=== PATIENT | female | born 1965 | race Caucasian/White ===

== ENCOUNTER 2021-05-27 15:14 | Inpatient (IN) | payer BC ==
[2021-05-27] MEDS ORDERED: Sodium Chloride 0.9% 10 ML Syringe FLUSH PRN (17:06)
--- NOTE | 2021-05-27 17:47 | CR ---
Chest: Frontal view of the chest was obtained. Comparison: Prior chest x-ray of 10/10/17. Heart size and mediastinum are within normal limits. Patchy areas of increased density are seen within the right upper and right midlung. Patchy areas of increased density are seen peripherally within the left upper and left lower lung. Left shoulder prosthesis is seen. Mild scoliosis is noted within the spine. Impression: 1. Patchy areas of increased density as described above within both sides of the chest. Findings are suspicious for COVID pneumonia. Please correlate. 2. Other incidental findings. Diagnostic code #3
[2021-05-27] MEDS ORDERED: Dexamethasone 4 MG Tab PO ONE (18:08)
--- NOTE | 2021-05-27 19:48 | EDM.PDOC ---
ED HPI GENERAL MEDICAL PROBLEM - General Chief Complaint: Respiratory Problem Stated Complaint: COVID SYMPTOMS Time Seen by Provider: 05/27/21 17:05 Source of Information: Reports: Patient, RN Notes Reviewed History Limitations: Reports: No Limitations - History of Present Illness INITIAL COMMENTS - FREE TEXT/NARRATIVE: Patient is a 56-year-old female presenting to the emergency department for evaluation of Covid symptoms. She reports that she is 10 days into cough, headaches, body aches, chills, and shortness of breath. Her is Covid positive. She is monitor her oxygen saturations at home and states that it was less than 90%, however she was able to get it to come out by doing breathing exercises. She has had some intermittent diarrhea but denies any nausea or vomiting. She has no chest pain. Denies any chronic underlying medical conditions. She has not received any form of treatment thus far for Covid. She has not officially tested positive for Covid. - Related Data Allergies Allergy/AdvReac Type Severity Reaction Status Date / Time levofloxacin [From Levaquin] Allergy Hives Verified 05/27/21 21:36 Home Meds: Home Meds Ibuprofen 800 mg PO TID PRN #20 tablet 01/05/16 [Rx] Loratadine/Pseudoephedrine [Claritin-D 24 Hour Tablet] 1 tab PO DAILY PRN 01/12/16 [History] Celecoxib [CeleBREX] 50 mg PO DAILY PRN 05/27/21 [History] Past Medical History HEENT History: Reports: None Cardiovascular History: Reports: None Respiratory History: Reports: None Gastrointestinal History: Reports: None Genitourinary History: Reports: Renal Calculus RN PROCEDURE History: Reports: None Musculoskeletal History: Reports: Other (See Below) Other Musculoskeletal History: has herniated disc in back, "flares up occasionally", left should replacement Neurological History: Reports: None Psychiatric History: Reports: None Endocrine/Metabolic History: Reports: Obesity/BMI 30+ Hematologic History: Reports: None Immunologic History: Reports: None Oncologic (Cancer) History: Reports: None Dermatologic History: Reports: None - Past Surgical History Head Surgeries/Procedures: Reports: None HEENT Surgical History: Reports: LASIK, Tonsillectomy Cardiovascular Surgical History: Reports: None Respiratory Surgical History: Reports: None GI Surgical History: Reports: None Female Surgical History: Reports: Hysterectomy, Tubal Ligation Endocrine Surgical History: Reports: None Musculoskeletal Surgical History: Reports: Other (See Below) Other Musculoskeletal Surgeries/Procedures:: removal of cyst left knee Social & Family History - Tobacco Use Tobacco Use Status *Q: Never Tobacco User Second Hand Smoke Exposure: No - Caffeine Use Caffeine Use: Reports: Soda - Recreational Drug Use Recreational Drug Use: No ED ROS GENERAL - Review of Systems Review Of Systems: Comprehensive ROS is negative, except as noted in HPI. ED EXAM, GENERAL - Physical Exam Exam: See Below Exam Limited By: No Limitations General Appearance: Alert, WD/WN, No Apparent Distress Respiratory/Chest: No Respiratory Distress, Normal Breath Sounds, No Accessory Muscle Use, Chest Non-Tender, Crackles (faint to bilateral bases) Cardiovascular: Normal Peripheral Pulses, Regular Rate, Rhythm, No Edema, No Gallop, No JVD, No Murmur, No Rub GI/Abdominal: Normal Bowel Sounds, Soft, Non-Tender, No Organomegaly, No Distention, No Abnormal Bruit, No Mass Neurological: Alert, Oriented, CN II-XII Intact, Normal Cognition, Normal Gait, Normal Reflexes, No Motor/Sensory Deficits Psychiatric: Normal Affect, Normal Mood Skin Exam: Warm, Dry, Intact, Normal Color, No Rash #1 Interpretation EKG Date: 05/28/21 Time: 17:40 Rhythm: NSR Rate (Beats/Min): 91 [place]: Normal P-Wave: Present QRS: Normal ST-T: Normal QT: Normal Course - Vital Signs Last Recorded V/S: Last Vital Signs Temp 98.8 F 05/28/21 20:30 Pulse 82 05/28/21 20:30 Resp 16 05/28/21 20:30 BP 122/72 05/28/21 20:30 Pulse Ox 97 05/28/21 20:30 - Orders/Labs/Meds Orders: Medication Orders Acetaminophen (Acetaminophen 325 Mg Tab) 650 mg PO Q4H PRN PRN Reason: Pain/Fever Last Admin: 05/28/21 21:34 Dose: 650 mg Documented by: Admin: 05/27/21 22:19 Dose: 650 mg Documented by: MARYANNE Albuterol/Ipratropium (Albuterol/Ipratropium 3.0-0.5 Mg/3 Ml Neb Soln) 3 ml NEB Q4H PRN PRN Reason: Shortness Of Breath/wheezing Docusate Sodium (Docusate Sodium 100 Mg Cap) 100 mg PO BID PRN PRN Reason: Constipation Enoxaparin Sodium (Enoxaparin 40 Mg/0.4 Ml Syringe) 40 mg SUBCUT DAILY [facility] Last Admin: 05/28/21 08:48 Dose: 40 mg Documented by: EDWINA Guaifenesin/Codeine Phosphate (Codeine/Guaifenesin 10-100 Mg/5 Ml Syrup 5 Ml Cup) 5 ml PO Q4H PRN PRN Reason: Cough Last Admin: 05/28/21 21:35 Dose: 5 ml Documented by: Admin: 05/28/21 16:58 Dose: 5 ml Documented by: EDWINA Ceftriaxone Sodium 2 gm/ (Sodium Chloride) 100 mls @ 200 mls/hr IV Q24H [facility] Last Admin: 05/28/21 07:30 Dose: 200 mls/hr Documented by: MARYANNE Remdesivir 100 mg/ Sodium (Chloride) 100 mls @ 100 mls/hr IV Q24H [facility] Stop: 05/31/21 20:59 Last Admin: 05/28/21 20:32 Dose: 100 mls/hr Documented by: MARI Loperamide HCl (Loperamide 2 Mg Cap) 4 mg PO ASDIRECTED PRN PRN Reason: Diarrhea Last Admin: 05/27/21 22:18 Dose: 4 mg Documented by: MARYANNE Morphine Sulfate (Morphine 2 Mg/Ml Syringe) 2 mg IVPUSH Q2H PRN PRN Reason: Pain (severe 7-10) Stop: 05/29/21 06:48 Ondansetron HCl (Ondansetron 4 Mg/2 Ml Sdv) 4 mg IVPUSH Q6H PRN PRN Reason: Nausea Ondansetron HCl (Ondansetron 4 Mg Tab.Dis) 4 mg PO Q4H PRN PRN Reason: nausea, able to take PO Oxycodone HCl (Oxycodone 5 Mg Tab) 5 mg PO Q4H PRN PRN Reason: Pain (moderate 4-6) Sodium Chloride (Sodium Chloride 0.9% 10 Ml Syringe) 10 ml FLUSH ASDIRECTED PRN PRN Reason: Keep Vein Open Last Admin: 05/27/21 19:55 Dose: 10 ml Documented by: MUELEVA Temazepam (Temazepam 15 Mg Cap) 15 mg PO BEDTIME PRN PRN Reason: Sleep Labs: Laboratory Tests 05/27/21 05/27/21 05/27/21 Range/Units 17:05 19:00 19:00 WBC 5.42 (3.98-10.04) K/mm3 RBC 4.92 (3.98-5.22) M/mm3 Hgb 13.5 D (11.2-15.7) gm/dl Hct 40.4 (34.1-44.9) % MCV 82.1 (79.4-94.8) fl MCH 27.4 (25.6-32.2) pg MCHC 33.4 (32.2-35.5) g/dl RDW Std Deviation 38.6 (36.4-46.3) fL Plt Count 198 (182-369) K/mm3 MPV 9.4 (9.4-12.3) fl Neut % (Auto) 77.6 H (34.0-71.1) % Lymph % (Auto) 15.7 L (19.3-51.7) % [place]son % (Auto) 6.3 (4.7-12.5) % Eos % (Auto) 0 L (0.7-5.8) Baso % (Auto) 0.2 (0.1-1.2) % Neut # (Auto) 4.21 (1.56-6.13) K/mm3 Lymph # (Auto) 0.85 L (1.18-3.74) K/mm3 [place]son # (Auto) 0.34 (0.24-0.36) K/mm3 Eos # (Auto) 0.00 L (0.04-0.36) K/mm3 Baso # (Auto) 0.01 (0.01-0.08) K/mm3 Manual Slide Review Normal smear PT (9.7-12.0) SECONDS INR APTT (21.7-31.4) SECONDS D-Dimer, Quantitative 0.67 H (0.19-0.50) mg/L Sodium (136-145) mEq/L Potassium (3.5-5.1) mEq/L Chloride (98-107) mEq/L Carbon Dioxide (21-32) mEq/L Anion Gap (5-15) BUN (7-18) mg/dL Creatinine (0.55-1.02) mg/dL Est Cr Clr Drug Dosing mL/min Estimated GFR (MDRD) (>60) mL/min BUN/Creatinine Ratio (14-18) Glucose (70-99) mg/dL Calcium (8.5-10.1) mg/dL Total Bilirubin (0.2-1.0) mg/dL AST (15-37) U/L ALT (14-59) U/L Alkaline Phosphatase (46-116) U/L Troponin I (0.00-0.056) ng/mL C-Reactive Protein (<1.0) mg/dL NT-Pro-B Natriuret Pep (0-125) pg/mL Total Protein (6.4-8.2) g/dl Albumin (3.4-5.0) g/dl Globulin gm/dL Albumin/Globulin Ratio (1-2) SARS-CoV-2 RNA ([facility]) Positive H (NEGATIVE) 05/27/21 05/27/21 05/27/21 Range/Units 19:00 19:00 19:02 WBC (3.98-10.04) K/mm3 RBC (3.98-5.22) M/mm3 Hgb (11.2-15.7) gm/dl Hct (34.1-44.9) % MCV (79.4-94.8) fl MCH (25.6-32.2) pg MCHC (32.2-35.5) g/dl RDW Std Deviation (36.4-46.3) fL Plt Count (182-369) K/mm3 MPV (9.4-12.3) fl Neut % (Auto) (34.0-71.1) % Lymph % (Auto) (19.3-51.7) % [place]son % (Auto) (4.7-12.5) % Eos % (Auto) (0.7-5.8) Baso % (Auto) (0.1-1.2) % Neut # (Auto) (1.56-6.13) K/mm3 Lymph # (Auto) (1.18-3.74) K/mm3 [place]son # (Auto) (0.24-0.36) K/mm3 Eos # (Auto) (0.04-0.36) K/mm3 Baso # (Auto) (0.01-0.08) K/mm3 Manual Slide Review PT 11.1 (9.7-12.0) SECONDS INR 1.04 APTT 33.3 H (21.7-31.4) SECONDS D-Dimer, Quantitative (0.19-0.50) mg/L Sodium 134 L (136-145) mEq/L Potassium 3.4 L (3.5-5.1) mEq/L Chloride 96 L (98-107) mEq/L Carbon Dioxide 28 (21-32) mEq/L Anion Gap 13.4 (5-15) BUN 11 (7-18) mg/dL Creatinine 0.9 (0.55-1.02) mg/dL Est Cr Clr Drug Dosing 72.08 mL/min Estimated GFR (MDRD) > 60 (>60) mL/min BUN/Creatinine Ratio 12.2 L (14-18) Glucose 104 H (70-99) mg/dL Calcium 8.2 L (8.5-10.1) mg/dL Total Bilirubin 0.6 (0.2-1.0) mg/dL AST 44 H (15-37) U/L ALT 34 (14-59) U/L Alkaline Phosphatase 42 L (46-116) U/L Troponin I < 0.017 (0.00-0.056) ng/mL C-Reactive Protein 9.5 H* (<1.0) mg/dL NT-Pro-B Natriuret Pep 106 (0-125) pg/mL Total Protein 6.4 (6.4-8.2) g/dl Albumin 3.0 L (3.4-5.0) g/dl Globulin 3.4 gm/dL Albumin/Globulin Ratio 0.9 L (1-2) SARS-CoV-2 RNA ([facility]) (NEGATIVE) Meds: Medications Generic Name Dose Route Start Last Admin Trade Name Freq PRN Reason Stop Dose Admin Acetaminophen 650 mg 05/27/21 21:54 05/28/21 21:34 Acetaminophen 325 Mg Tab PO 650 mg Q4H PRN Administration Pain/Fever Albuterol/Ipratropium 3 ml 05/28/21 06:48 Albuterol/Ipratropium 3.0-0.5 Mg/3 Ml Neb Soln NEB Q4H PRN Shortness Of Breath/wheezing Docusate Sodium 100 mg 05/28/21 06:48 Docusate Sodium 100 Mg Cap PO BID PRN Constipation Enoxaparin Sodium 40 mg 05/28/21 09:00 05/28/21 08:48 Enoxaparin 40 Mg/0.4 Ml Syringe SUBCUT 40 mg DAILY MIGUEL Administration Guaifenesin/Codeine Phosphate 5 ml 05/28/21 16:42 05/28/21 21:35 Codeine/Guaifenesin 10-100 Mg/5 Ml Syrup 5 Ml Cup PO 5 ml Q4H PRN Administration Cough Ceftriaxone Sodium 2 gm/ 100 mls @ 200 mls/hr 05/28/21 07:00 05/28/21 07:30 Sodium Chloride IV 200 mls/hr Q24H MIGUEL Administration Remdesivir 100 mg/ Sodium 100 mls @ 100 mls/hr 05/28/21 20:00 05/28/21 20:32 Chloride IV 05/31/21 20:59 100 mls/hr Q24H MIGUEL Administration Loperamide HCl 4 mg 05/27/21 21:56 05/27/21 22:18 Loperamide 2 Mg Cap PO 4 mg ASDIRECTED PRN Administration Diarrhea Morphine Sulfate 2 mg 05/28/21 06:48 Morphine 2 Mg/Ml Syringe IVPUSH 05/29/21 06:48 Q2H PRN Pain (severe 7-10) Ondansetron HCl 4 mg 05/28/21 04:00 Ondansetron 4 Mg/2 Ml Sdv IVPUSH Q6H PRN Nausea Ondansetron HCl 4 mg 05/28/21 06:48 Ondansetron 4 Mg Tab.Dis PO Q4H PRN nausea, able to take PO Oxycodone HCl 5 mg 05/28/21 06:48 Oxycodone 5 Mg Tab PO Q4H PRN Pain (moderate 4-6) Sodium Chloride 10 ml 05/27/21 17:06 05/27/21 19:55 Sodium Chloride 0.9% 10 Ml Syringe FLUSH 10 ml ASDIRECTED PRN Administration Keep Vein Open Temazepam 15 mg 05/28/21 06:48 Temazepam 15 Mg Cap PO BEDTIME PRN Sleep Discontinued Medications Generic Name Dose Route Start Last Admin Trade Name Freq PRN Reason Stop Dose Admin Dexamethasone 6 mg 05/27/21 18:08 05/27/21 19:51 Dexamethasone 4 Mg Tab PO 05/27/21 18:09 6 mg ONETIME ONE Administration Enoxaparin Sodium 40 mg 05/27/21 19:57 05/27/21 20:11 Enoxaparin 40 Mg/0.4 Ml Syringe SUBCUT 05/27/21 19:58 40 mg ONETIME ONE Administration Remdesivir 200 mg/ Sodium 250 mls @ 250 mls/hr 05/27/21 19:54 05/27/21 20:12 Chloride IV 05/27/21 19:55 250 mls/hr ONETIME ONE Administration Ceftriaxone Sodium 2 gm/ 100 mls @ 200 mls/hr 05/28/21 07:00 Sodium Chloride IV Q24H MIGUEL Ceftriaxone Sodium 1 gm/ 100 mls @ 200 mls/hr 05/28/21 07:00 Sodium Chloride IV Q24H MIGUEL Nicotine 14 mg 05/28/21 09:00 05/28/21 09:16 Nicotine 14 Mg/24 Hr Patch TRDERM Not Given DAILY MIGUEL Ondansetron HCl 4 mg 05/27/21 19:58 05/27/21 20:12 Ondansetron 4 Mg/2 Ml Sdv IVPUSH 05/27/21 19:59 4 mg ONETIME ONE Administration Potassium Bicarbonate 20 meq 05/28/21 07:10 05/28/21 08:48 Potassium Bicarbonate/Cit Ac 20 Meq Effervescent Tab PO 05/28/21 07:11 20 meq ONETIME ONE Administration - Re-Assessments/Exams Free Text/Narrative Re-Assessment/Exam: Patient is a 56-year-old female presenting to the emergency department for evaluation of Covid symptoms. Initial oxygen saturation in triage was 90% on room air, however she was as low as 85 to 86% on room air while she was being monitored. Lung sounds are diminished but there is no obvious crackling or wheezing. Patient has been placed on 2 L of oxygen by nasal cannula and is saturating in the low 90s. She had requested treatment with Regeneron, however given that she is hypoxic, she is not eligible for this. She will likely require hospital admission. I have ordered blood work, EKG, chest x-ray, and Covid test. 05/27/21 1820 Hematology is pending. Chest x-ray shows mild bilateral Covid pneumonia. Covid test has not officially returned as positive. I have ordered dexamethasone 6 mg p.o. to be given now. I did visit with hospitalist, Dr. Nolen, before he leaves for the evening. He is excepted the patient for admission. He requests that I start remdesivir once lab work is completed. 05/27/21 20:10 Hematology significant for D-dimer minimally elevated 0.67, sodium 134, potassium 3.4, chloride 96, AST 44, CRP 9.5. Troponin is undetectably low. Patient is Covid positive. I provide patient with an information sheet on remdesivir treatment and discussed the risks. She has agreed to go ahead with treatment. She is requesting something for nausea. I have ordered remdesivir, and Zofran. I will be writing bridge orders for admission. We will start her on Lovenox 40 mg for DVT prophylaxis. Departure - Departure Time of Disposition: 20:10 Disposition: Admitted As Inpatient 68 Condition: Good Clinical Impression: Pneumonia due to COVID-19 virus, Hypoxia - Discharge Information
[2021-05-27] MEDS ORDERED: REMDESIVIR 200 MG in Sodium Chloride 0.9% 250 ML IV ONE (19:54)
[2021-05-27] MEDS ORDERED: Enoxaparin 40 MG/0.4 ML Syringe SUBCUT ONE (19:57)
[2021-05-27] MEDS ORDERED: Ondansetron 4 MG/2 ML SDV IVPUSH ONE (19:58)
[2021-05-27] MEDS ORDERED: Loperamide 2 MG Cap PO PRN (21:56)
[2021-05-27] MEDS: Acetaminophen 325 MG Tab PO PRN (22:19)
[2021-05-28] MEDS ORDERED: Ondansetron 4 MG/2 ML SDV IVPUSH PRN (04:00)
[2021-05-28] MEDS ORDERED: Ondansetron 4 MG Tab.DIS PO PRN (06:48)
[2021-05-28] MEDS ORDERED: Docusate Sodium 100 MG Cap PO PRN (06:48)
[2021-05-28] MEDS ORDERED: Morphine 2 MG/ML SYRINGE IVPUSH PRN (06:48)
[2021-05-28] MEDS ORDERED: Albuterol/Ipratropium 3.0-0.5 MG/3 ML Neb Soln NEB PRN (06:48)
[2021-05-28] MEDS ORDERED: oxyCODONE 5 MG Tab PO PRN (06:48)
--- NOTE | 2021-05-28 06:52 | PCM.HP.2 ---
H&P History of Present Illness - General Date of Service: 05/28/21 Admit Problem/Dx: Admission Diagnosis/Problem Admission Diagnosis/Problem Hypoxia Source of Information: Patient History Limitations: Reports: No Limitations - History of Present Illness Initial Comments - Free Text/Narative: Patient is a 56-year-old lady who had presented to the emergency department for evaluation and worsening of her COVID-19 symptoms. She was tested positive approximately 10 days ago. The patient says that she has been having cough, headaches, fever and chills and associated shortness of breath. The patient says that she has sick contacts at home and her has been Covid positive as well. She has been able to monitor her oxygen saturations at home and at one point her O2 sats were less than 90%. Patient also reports some mild abdominal pain with some nausea and diarrhea. The patient has no chronic medical history. She is not taking any medications other than [id number] meds for allergies. The patient also says that she has not had the vaccine. The patient feels like she has been getting worse over the past several days. Onset of Symptoms: Reports: Gradual Duration of Symptoms: Reports: Day(s): Location: Reports: Chest, Generalized Quality: Reports: Ache, Stabbing Severity: Moderate Improves with: Reports: Rest, Other (Deep breathing) Worsens with: Reports: None Context: Reports: Sick Contact Associated Symptoms: Reports: Cough, Fever/Chills, Headaches, Nausea/Vomiting, Shortness of Breath - Related Data Allergies/Adverse Reactions: Allergies Allergy/AdvReac Type Severity Reaction Status Date / Time levofloxacin [From Levaquin] Allergy Hives Verified 05/27/21 21:36 Home Medications: Home Meds Ibuprofen 800 mg PO TID PRN #20 tablet 01/05/16 [Rx] Loratadine/Pseudoephedrine [Claritin-D 24 Hour Tablet] 1 tab PO DAILY PRN 01/12/16 [History] Celecoxib [CeleBREX] 50 mg PO DAILY PRN 05/27/21 [History] Past Medical History HEENT History: Reports: None Cardiovascular History: Reports: None Respiratory History: Reports: None Gastrointestinal History: Reports: None Genitourinary History: Reports: [employer] History: Reports: Musculoskeletal History: Reports: Other (See Below) Other Musculoskeletal History: has herniated disc in back, "flares up occasionally", left should replacement Neurological History: Reports: None Psychiatric History: Reports: None Endocrine/Metabolic History: Reports: Obesity/BMI 30+ Hematologic History: Reports: None Immunologic History: Reports: None Oncologic (Cancer) History: Reports: None Dermatologic History: Reports: None - Infectious Disease History Infectious Disease History: Reports: Chicken Pox, Novel Coronavirus - Past Surgical History Head Surgeries/Procedures: Reports: None HEENT Surgical History: Reports: LASIK, Tonsillectomy Cardiovascular Surgical History: Reports: None Respiratory Surgical History: Reports: None GI Surgical History: Reports: Colonoscopy Female Surgical History: Reports: Hysterectomy, Tubal Ligation Endocrine Surgical History: Reports: None Musculoskeletal Surgical History: Reports: Other (See Below) Other Musculoskeletal Surgeries/Procedures:: removal of cyst left knee Social & Family History - Tobacco Use Tobacco Use Status *Q: Never Tobacco User Second Hand Smoke Exposure: Yes - Caffeine Use Caffeine Use: Reports: Coffee Other Caffeine Use: every once in awhile - Alcohol Use Alcohol Use History: No Alcohol Use in Last Twelve Months: No - Recreational Drug Use Recreational Drug Use: No - Living Situation & Occupation Living situation: Reports: , with Spouse Occupation: Employed H&P Review of Systems - Review of Systems: Review Of Systems: See Below General: Reports: Fever, Chills, Weakness, Fatigue HEENT: Reports: No Symptoms Pulmonary: Reports: Shortness of Breath, Cough Cardiovascular: Reports: No Symptoms Gastrointestinal: Reports: Diarrhea, Nausea Genitourinary: Reports: No Symptoms Musculoskeletal: Reports: No Symptoms Skin: Reports: No Symptoms Psychiatric: Reports: No Symptoms Neurological: Reports: No Symptoms Hematologic/Lymphatic: Reports: No Symptoms Immunologic: Reports: No Symptoms Exam - Exam Exam: See Below - Vital Signs Vital Signs: Last Vital Signs Temp 37.0 C 05/28/21 00:51 Pulse 77 05/28/21 00:51 Resp 18 05/28/21 00:51 BP 137/80 05/28/21 00:51 Pulse Ox 98 05/28/21 02:17 Weight: 105.687 kg - Exam Quality Assessment: Supplemental Oxygen, DVT Prophylaxis General: Alert, Oriented, Cooperative HEENT: Conjunctiva Clear, EACs Clear, EOMI, Mucosa Moist & [place], PERRLA Neck: Supple, Trachea Midline Lungs: Normal Respiratory Effort, Crackles (Diffuse) Cardiovascular: Regular Rate, Regular Rhythm GI/Abdominal Exam: Normal Bowel Sounds, Soft, No Distention (Female) Exam: Deferred Rectal (Female) Exam: Deferred Back Exam: Normal Inspection, Full Range of Motion Extremities: Normal Inspection, Normal Range of Motion, No Pedal Edema Skin: Warm, Dry, Intact Neurological: Cranial Nerves Intact, Normal Speech, Normal Tone Neuro Extensive - Motor, Sensory, Reflexes: CN II-XII Intact, Normal Gait Psychiatric: Alert, Normal Affect, Normal Mood - Patient Data Lab Results Last 24 hrs: Laboratory Results - last 24 hr 05/27/21 05/27/21 05/27/21 Range/Units 17:05 19:00 19:00 WBC 5.42 (3.98-10.04) K/mm3 RBC 4.92 (3.98-5.22) M/mm3 Hgb 13.5 D (11.2-15.7) gm/dl Hct 40.4 (34.1-44.9) % MCV 82.1 (79.4-94.8) fl MCH 27.4 (25.6-32.2) pg MCHC 33.4 (32.2-35.5) g/dl RDW Std Deviation 38.6 (36.4-46.3) fL Plt Count 198 (182-369) K/mm3 MPV 9.4 (9.4-12.3) fl Neut % (Auto) 77.6 H (34.0-71.1) % Lymph % (Auto) 15.7 L (19.3-51.7) % [place] % (Auto) 6.3 (4.7-12.5) % Eos % (Auto) 0 L (0.7-5.8) Baso % (Auto) 0.2 (0.1-1.2) % Neut # (Auto) 4.21 (1.56-6.13) K/mm3 Lymph # (Auto) 0.85 L (1.18-3.74) K/mm3 [place] # (Auto) 0.34 (0.24-0.36) K/mm3 Eos # (Auto) 0.00 L (0.04-0.36) K/mm3 Baso # (Auto) 0.01 (0.01-0.08) K/mm3 Manual Slide Review Normal smear PT (9.7-12.0) SECONDS INR APTT (21.7-31.4) SECONDS D-Dimer, Quantitative 0.67 H (0.19-0.50) mg/L Sodium (136-145) mEq/L Potassium (3.5-5.1) mEq/L Chloride (98-107) mEq/L Carbon Dioxide (21-32) mEq/L Anion Gap (5-15) BUN (7-18) mg/dL Creatinine (0.55-1.02) mg/dL Est Cr Clr Drug Dosing mL/min Estimated GFR (MDRD) (>60) mL/min BUN/Creatinine Ratio (14-18) Glucose (70-99) mg/dL Calcium (8.5-10.1) mg/dL Total Bilirubin (0.2-1.0) mg/dL AST (15-37) U/L ALT (14-59) U/L Alkaline Phosphatase (46-116) U/L Troponin I (0.00-0.056) ng/mL C-Reactive Protein (<1.0) mg/dL NT-Pro-B Natriuret Pep (0-125) pg/mL Total Protein (6.4-8.2) g/dl Albumin (3.4-5.0) g/dl Globulin gm/dL Albumin/Globulin Ratio (1-2) SARS-CoV-2 RNA (WARREN) Positive H (NEGATIVE) 05/27/21 05/27/21 05/27/21 Range/Units 19:00 19:00 19:02 WBC (3.98-10.04) K/mm3 RBC (3.98-5.22) M/mm3 Hgb (11.2-15.7) gm/dl Hct (34.1-44.9) % MCV (79.4-94.8) fl MCH (25.6-32.2) pg MCHC (32.2-35.5) g/dl RDW Std Deviation (36.4-46.3) fL Plt Count (182-369) K/mm3 MPV (9.4-12.3) fl Neut % (Auto) (34.0-71.1) % Lymph % (Auto) (19.3-51.7) % [place] % (Auto) (4.7-12.5) % Eos % (Auto) (0.7-5.8) Baso % (Auto) (0.1-1.2) % Neut # (Auto) (1.56-6.13) K/mm3 Lymph # (Auto) (1.18-3.74) K/mm3 Worth # (Auto) (0.24-0.36) K/mm3 Eos # (Auto) (0.04-0.36) K/mm3 Baso # (Auto) (0.01-0.08) K/mm3 Manual Slide Review PT 11.1 (9.7-12.0) SECONDS INR 1.04 APTT 33.3 H (21.7-31.4) SECONDS D-Dimer, Quantitative (0.19-0.50) mg/L Sodium 134 L (136-145) mEq/L Potassium 3.4 L (3.5-5.1) mEq/L Chloride 96 L (98-107) mEq/L Carbon Dioxide 28 (21-32) mEq/L Anion Gap 13.4 (5-15) BUN 11 (7-18) mg/dL Creatinine 0.9 (0.55-1.02) mg/dL Est Cr Clr Drug Dosing 72.08 mL/min Estimated GFR (MDRD) > 60 (>60) mL/min BUN/Creatinine Ratio 12.2 L (14-18) Glucose 104 H (70-99) mg/dL Calcium 8.2 L (8.5-10.1) mg/dL Total Bilirubin 0.6 (0.2-1.0) mg/dL AST 44 H (15-37) U/L ALT 34 (14-59) U/L Alkaline Phosphatase 42 L (46-116) U/L Troponin I < 0.017 (0.00-0.056) ng/mL C-Reactive Protein 9.5 H* (<1.0) mg/dL NT-Pro-B Natriuret Pep 106 (0-125) pg/mL Total Protein 6.4 (6.4-8.2) g/dl Albumin 3.0 L (3.4-5.0) g/dl Globulin 3.4 gm/dL Albumin/Globulin Ratio 0.9 L (1-2) SARS-CoV-2 RNA (W[place]EN) (NEGATIVE) Result Diagrams: 05/27/21 19:00 05/27/21 19:00 Jorge Results Last 24 hrs: Microbiology 05/27/21 17:05 Influenza Type A Antigen Screen - Final Nasopharyngeal Swab - Nare, Unspecified NEGATIVE INFLUENZA A VIRUS AG REFERENCE RANGE: NEGATIVE Influenza Type B Antigen Screen - Final NEGATIVE INFLUENZA B VIRUS AG REFERENCE RANGE: NEGATIVE Sepsis Event Note - Evaluation Sepsis Screening Result: No Definite Risk - Focused Exam Vital Signs: Vital Signs Temp Pulse Resp BP Pulse Ox Pulse Ox 05/28/21 02:17 98 05/28/21 00:51 37.0 C 77 18 137/80 96 05/27/21 22:19 39.6 C H 05/27/21 21:09 39.6 C H 82 19 128/63 97 - Problem List (1) Acute respiratory failure due to COVID-19 SNOMED Code(s): 805561559 ICD Code: U07.1 - COVID-19; J96.00 - ACUTE RESPIRATORY FAILURE, UNSP W HYPOXIA OR HYPERCAPNIA Status: Acute Priority: High Current Visit: Yes (2) Pneumonia due to COVID-19 virus SNOMED Code(s): 068463823843829383 ICD Code: U07.1 - COVID-19; J12.82 - PNEUMONIA DUE TO CORONAVIRUS DISEASE 2019 Status: Acute Priority: High Current Visit: Yes Problem List Initiated/Reviewed/Updated: Yes Orders Last 24hrs: Active Orders 24 hr Category Date Time Status Patient Status [ADT] Routine ADT 05/27/21 20:48 Active Activity as Tolerated [RC] .Routine Care 05/28/21 03:59 Active Cardiac Monitoring [RC] CONTINUOUS Care 05/28/21 06:48 Ordered Communication Order [RC] ASDIRECTED Care 05/28/21 03:59 Active Oxygen Therapy [RC] ASDIRECTED Care 05/28/21 00:02 Active Oxygen Therapy [RC] PRN Care 05/28/21 06:48 Ordered RT Aerosol Therapy [RC] ASDIRECTED Care 05/28/21 06:48 Ordered Up ad Josee [RC] ASDIRECTED Care 05/28/21 06:48 Ordered VTE/DVT Education [RC] PER UNIT ROUTINE Care 05/28/21 06:48 Ordered Vital Signs [RC] Q4H Care 05/28/21 06:48 Ordered Regular Diet [DIET] Diet 05/28/21 Breakfast Active Regular Diet [DIET] Diet 05/28/21 Dinner Ordered BLOOD CULTURE [MREF] Stat Lab 05/27/21 22:05 Received BLOOD CULTURE [MREF] Stat Lab 05/27/21 22:15 Received C-REACTIVE PROTEIN [CHEM] AM Lab 05/29/21 05:11 Ordered CBC WITH AUTO DIFF [HEME] AM Lab 05/29/21 05:11 Ordered COMPREHENSIVE METABOLIC PN,CMP [CHEM] AM Lab 05/29/21 05:11 Ordered D-DIMER QUANTITATIVE [COAG] AM Lab 05/29/21 05:11 Ordered MAGNESIUM [CHEM] AM Lab 05/29/21 05:11 Ordered Acetaminophen [TylenoL] Med 05/27/21 21:54 Active 650 mg PO Q4H PRN Albuterol/Ipratropium [DuoNeb 3.0-0.5 MG/3 ML] Med 05/28/21 06:48 Ordered 3 ml NEB Q4H PRN Docusate Sodium [Colace] Med 05/28/21 06:48 Ordered 100 mg PO BID PRN Enoxaparin [Lovenox] Med 05/28/21 09:00 Ordered 40 mg SUBCUT DAILY Loperamide [Imodium] Med 05/27/21 21:56 Active 4 mg PO ASDIRECTED PRN Morphine Med 05/28/21 06:48 Ordered 2 mg IVPUSH Q2H PRN Nicotine [Habitrol] Med 05/28/21 09:00 Ordered 14 mg TRDERM DAILY Ondansetron [Zofran ODT] Med 05/28/21 06:48 Ordered 4 mg PO Q4H PRN Ondansetron [Zofran] Med 05/28/21 04:00 Active 4 mg IVPUSH Q6H PRN Sodium Chloride 0.9% [Saline Flush] Med 05/27/21 17:06 Active 10 ml FLUSH ASDIRECTED PRN Temazepam [Restoril] Med 05/28/21 06:48 Ordered 15 mg PO BEDTIME PRN cefTRIAXone [Rocephin] 2 gm Med 05/28/21 07:00 Ordered Sodium Chloride 0.9% [Normal Saline] 100 ml IV Q24H oxyCODONE Med 05/28/21 06:48 Ordered 5 mg PO Q4H PRN Blood Culture x2 Reflex Set [OM.PC] Stat Oth 05/27/21 21:55 Ordered Peripheral IV Insertion Adult [OM.PC] Stat Oth 05/27/21 17:06 Ordered Code Status [Resuscitation Status] Routine Resus Stat 05/28/21 03:49 Ordered Medication Orders Acetaminophen (Acetaminophen 325 Mg Tab) 650 mg PO Q4H PRN PRN Reason: Pain/Fever Last Admin: 05/27/21 22:19 Dose: 650 mg Documented by: MARYANNE Albuterol/Ipratropium (Albuterol/Ipratropium 3.0-0.5 Mg/3 Ml Neb Soln) 3 ml NEB Q4H PRN PRN Reason: Shortness Of Breath/wheezing Docusate Sodium (Docusate Sodium 100 Mg Cap) 100 mg PO BID PRN PRN Reason: Constipation Enoxaparin Sodium (Enoxaparin 40 Mg/0.4 Ml Syringe) 40 mg SUBCUT DAILY MIGUEL Ceftriaxone Sodium 2 gm/ (Sodium Chloride) 100 mls @ 200 mls/hr IV Q24H MIGUEL Loperamide HCl (Loperamide 2 Mg Cap) 4 mg PO ASDIRECTED PRN PRN Reason: Diarrhea Last Admin: 05/27/21 22:18 Dose: 4 mg Documented by: MARYANNE Morphine Sulfate (Morphine 2 Mg/Ml Syringe) 2 mg IVPUSH Q2H PRN PRN Reason: Pain (severe 7-10) Stop: 05/29/21 06:48 Nicotine (Nicotine 14 Mg/24 Hr Patch) 14 mg TRDERM DAILY MIGUEL Ondansetron HCl (Ondansetron 4 Mg/2 Ml Sdv) 4 mg IVPUSH Q6H PRN PRN Reason: Nausea Ondansetron HCl (Ondansetron 4 Mg Tab.Dis) 4 mg PO Q4H PRN PRN Reason: nausea, able to take PO Oxycodone HCl (Oxycodone 5 Mg Tab) 5 mg PO Q4H PRN PRN Reason: Pain (moderate 4-6) Sodium Chloride (Sodium Chloride 0.9% 10 Ml Syringe) 10 ml FLUSH ASDIRECTED PRN PRN Reason: Keep Vein Open Last Admin: 05/27/21 19:55 Dose: 10 ml Documented by: WALLACE Temazepam (Temazepam 15 Mg Cap) 15 mg PO BEDTIME PRN PRN Reason: Sleep Assessment/Plan Comment:: The patient is a 56-year-old lady who has been admitted to acute inpatient hospitalization secondary to acute respiratory failure due to COVID-19 pneumonia. The patient is outside the window for remdesivir. She has been started on dexamethasone. The patient also spiked a fever yesterday and blood cultures were ordered. The patient was started on ceftriaxone 2 g IV on a daily basis. Repeat laboratory studies have been ordered. The patient will have her oxygen adjusted to keep her saturations around 90 to 92%. The patient will have a regular diet as tolerated. She is also anticoagulated with the use of Lovenox 40 mg subcutaneous daily. The patient has been encouraged to ambulate. - Mortality Measure Prognosis:: Good
[2021-05-28] MEDS ORDERED: cefTRIAXone 1 GM in Sodium Chloride 0.9% 100 ML IV SCH (07:00)
[2021-05-28] MEDS ORDERED: cefTRIAXone 2 GM in Sodium Chloride 0.9% 100 ML IV SCH (07:00)
[2021-05-28] MEDS ORDERED: Potassium Bicarbonate/Cit Ac 20 MEQ Effervescent Tab PO ONE (07:10)
[2021-05-28] MEDS: cefTRIAXone 2 GM in Sodium Chloride 0.9% 100 ML IV SCH (07:30)
[2021-05-28] MEDS: Enoxaparin 40 MG/0.4 ML Syringe SUBCUT SCH (08:48)
[2021-05-28] MEDS ORDERED: Nicotine 14 MG/24 Hr Patch TRDERM SCH (09:00)
[2021-05-28] MEDS: Codeine/guaiFENesin 10-100 MG/5 ML Syrup 5 ML Cup PO PRN ×2 (16:58→21:35)
[2021-05-28] MEDS: REMDESIVIR 100 MG in Sodium Chloride 0.9% 100 ML IV SCH (20:32)
[2021-05-28] MEDS: Acetaminophen 325 MG Tab PO PRN (21:34)
[2021-05-29] MEDS: Codeine/guaiFENesin 10-100 MG/5 ML Syrup 5 ML Cup PO PRN ×3 (05:34→21:03)
[2021-05-29] MEDS: cefTRIAXone 2 GM in Sodium Chloride 0.9% 100 ML IV SCH ×2 (05:34→07:52)
[2021-05-29] MEDS: Acetaminophen 325 MG Tab PO PRN ×3 (06:16→21:02)
--- NOTE | 2021-05-29 06:33 | PCM.PN ---
- General Info Date of Service: 05/29/21 Admission Dx/Problem (Free Text): Admission Diagnosis/Problem Admission Diagnosis/Problem Hypoxia Subjective Update: The patient is a 56-year-old lady who was admitted to her acute hospitalization secondary to hypoxia associated with COVID-19 symptoms. The patient today is on room air. The patient has denied any pain. She is breathing better. She has no other complaints today. She has been tolerating her diet. The patient says that she is overall feeling better. Functional Status: Reports: Pain Controlled, Tolerating Diet - Review of Systems General: Reports: No Symptoms HEENT: Reports: No Symptoms Pulmonary: Reports: No Symptoms Cardiovascular: Reports: No Symptoms Gastrointestinal: Reports: No Symptoms Genitourinary: Reports: No Symptoms Musculoskeletal: Reports: No Symptoms Skin: Reports: No Symptoms Neurological: Reports: No Symptoms Psychiatric: Reports: No Symptoms - Patient Data Vitals - Most Recent: Last Vital Signs Temp 37.1 C 05/28/21 20:30 Pulse 82 05/28/21 20:30 Resp 16 05/28/21 20:30 BP 122/72 05/28/21 20:30 Pulse Ox 97 05/28/21 20:30 Weight - Most Recent: 105.687 kg I&O - Last 24 Hours: Intake & Output 05/28/21 05/28/21 05/29/21 14:59 22:59 06:59 Intake Total 0 1400 Output Total 1100 Balance 0 300 Lab Results Last 24 Hours: Laboratory Results - last 24 hr 05/29/21 Range/Units 05:38 WBC 7.31 (3.98-10.04) K/mm3 RBC 5.12 (3.98-5.22) M/mm3 Hgb 14.2 (11.2-15.7) gm/dl Hct 42.1 (34.1-44.9) % MCV 82.2 (79.4-94.8) fl MCH 27.7 (25.6-32.2) pg MCHC 33.7 (32.2-35.5) g/dl RDW Std Deviation 39.3 (36.4-46.3) fL Plt Count 272 (182-369) K/mm3 MPV 9.4 (9.4-12.3) fl Neut % (Auto) 79.5 H (34.0-71.1) % Lymph % (Auto) 13.8 L (19.3-51.7) % [place] % (Auto) 5.9 (4.7-12.5) % Eos % (Auto) 0 L (0.7-5.8) Baso % (Auto) 0.3 (0.1-1.2) % Neut # (Auto) 5.81 (1.56-6.13) K/mm3 Lymph # (Auto) 1.01 L (1.18-3.74) K/mm3 [place] # (Auto) 0.43 H (0.24-0.36) K/mm3 Eos # (Auto) 0.00 L (0.04-0.36) K/mm3 Baso # (Auto) 0.02 (0.01-0.08) K/mm3 Med Orders - Current: Current Medications Acetaminophen (Acetaminophen 325 Mg Tab) 650 mg PO Q4H PRN PRN Reason: Pain/Fever Last Admin: 05/29/21 06:16 Dose: 650 mg Documented by: Albuterol/Ipratropium (Albuterol/Ipratropium 3.0-0.5 Mg/3 Ml Neb Soln) 3 ml NEB Q4H PRN PRN Reason: Shortness Of Breath/wheezing Docusate Sodium (Docusate Sodium 100 Mg Cap) 100 mg PO BID PRN PRN Reason: Constipation Enoxaparin Sodium (Enoxaparin 40 Mg/0.4 Ml Syringe) 40 mg SUBCUT DAILY [facility] Last Admin: 05/28/21 08:48 Dose: 40 mg Documented by: Guaifenesin/Codeine Phosphate (Codeine/Guaifenesin 10-100 Mg/5 Ml Syrup 5 Ml Cup) 5 ml PO Q4H PRN PRN Reason: Cough Last Admin: 05/29/21 05:34 Dose: 5 ml Documented by: Ceftriaxone Sodium 2 gm/ (Sodium Chloride) 100 mls @ 200 mls/hr IV Q24H [facility] Last Admin: 05/29/21 05:34 Dose: 200 mls/hr Documented by: Remdesivir 100 mg/ Sodium (Chloride) 100 mls @ 100 mls/hr IV Q24H [facility] Stop: 05/31/21 20:59 Last Admin: 05/28/21 20:32 Dose: 100 mls/hr Documented by: Loperamide HCl (Loperamide 2 Mg Cap) 4 mg PO ASDIRECTED PRN PRN Reason: Diarrhea Last Admin: 05/27/21 22:18 Dose: 4 mg Documented by: Morphine Sulfate (Morphine 2 Mg/Ml Syringe) 2 mg IVPUSH Q2H PRN PRN Reason: Pain (severe 7-10) Stop: 05/29/21 06:48 Ondansetron HCl (Ondansetron 4 Mg/2 Ml Sdv) 4 mg IVPUSH Q6H PRN PRN Reason: Nausea Ondansetron HCl (Ondansetron 4 Mg Tab.Dis) 4 mg PO Q4H PRN PRN Reason: nausea, able to take PO Oxycodone HCl (Oxycodone 5 Mg Tab) 5 mg PO Q4H PRN PRN Reason: Pain (moderate 4-6) Sodium Chloride (Sodium Chloride 0.9% 10 Ml Syringe) 10 ml FLUSH ASDIRECTED PRN PRN Reason: Keep Vein Open Last Admin: 05/27/21 19:55 Dose: 10 ml Documented by: Temazepam (Temazepam 15 Mg Cap) 15 mg PO BEDTIME PRN PRN Reason: Sleep Discontinued Medications Dexamethasone (Dexamethasone 4 Mg Tab) 6 mg PO ONETIME ONE Stop: 05/27/21 18:09 Last Admin: 05/27/21 19:51 Dose: 6 mg Documented by: Enoxaparin Sodium (Enoxaparin 40 Mg/0.4 Ml Syringe) 40 mg SUBCUT ONETIME ONE Stop: 05/27/21 19:58 Last Admin: 05/27/21 20:11 Dose: 40 mg Documented by: Remdesivir 200 mg/ Sodium (Chloride) 250 mls @ 250 mls/hr IV ONETIME ONE Stop: 05/27/21 19:55 Last Admin: 05/27/21 20:12 Dose: 250 mls/hr Documented by: Ceftriaxone Sodium 2 gm/ (Sodium Chloride) 100 mls @ 200 mls/hr IV Q24H MIGUEL Ceftriaxone Sodium 1 gm/ (Sodium Chloride) 100 mls @ 200 mls/hr IV Q24H MIGUEL Nicotine (Nicotine 14 Mg/24 Hr Patch) 14 mg TRDERM DAILY MIGUEL Last Admin: 05/28/21 09:16 Dose: Not Given Documented by: Ondansetron HCl (Ondansetron 4 Mg/2 Ml Sdv) 4 mg IVPUSH ONETIME ONE Stop: 05/27/21 19:59 Last Admin: 05/27/21 20:12 Dose: 4 mg Documented by: Potassium Bicarbonate (Potassium Bicarbonate/Cit Ac 20 Meq Effervescent Tab) 20 meq PO ONETIME ONE Stop: 05/28/21 07:11 Last Admin: 05/28/21 08:48 Dose: 20 meq Documented by: - Exam Quality Assessment: DVT Prophylaxis. No: Supplemental Oxygen General: Alert, Oriented, Cooperative, No Acute Distress HEENT: Pupils Equal, Pupils Reactive, EOMI, Mucous Membr. Moist/[place] Neck: Supple, Trachea Midline Lungs: Normal Respiratory Effort, Rales (Bibasilar) Cardiovascular: Regular Rate, Regular Rhythm GI/Abdominal Exam: Normal Bowel Sounds, Soft, Non-Tender, No Distention (Female) Exam: Deferred Back Exam: Normal Inspection, Full Range of Motion Extremities: Normal Inspection, Normal Range of Motion, No Pedal Edema Skin: Warm, Dry, Intact Neurological: No New Focal Deficit, Normal Gait, Normal Speech, Normal Tone Psy/Mental Status: Alert, Normal Affect - Patient Data Lab Results Last 24 hrs: Laboratory Results - last 24 hr 05/29/21 Range/Units 05:38 WBC 7.31 (3.98-10.04) K/mm3 RBC 5.12 (3.98-5.22) M/mm3 Hgb 14.2 (11.2-15.7) gm/dl Hct 42.1 (34.1-44.9) % MCV 82.2 (79.4-94.8) fl MCH 27.7 (25.6-32.2) pg MCHC 33.7 (32.2-35.5) g/dl RDW Std Deviation 39.3 (36.4-46.3) fL Plt Count 272 (182-369) K/mm3 MPV 9.4 (9.4-12.3) fl Neut % (Auto) 79.5 H (34.0-71.1) % Lymph % (Auto) 13.8 L (19.3-51.7) % [place] % (Auto) 5.9 (4.7-12.5) % Eos % (Auto) 0 L (0.7-5.8) Baso % (Auto) 0.3 (0.1-1.2) % Neut # (Auto) 5.81 (1.56-6.13) K/mm3 Lymph # (Auto) 1.01 L (1.18-3.74) K/mm3 [place] # (Auto) 0.43 H (0.24-0.36) K/mm3 Eos # (Auto) 0.00 L (0.04-0.36) K/mm3 Baso # (Auto) 0.02 (0.01-0.08) K/mm3 Result Diagrams: 05/29/21 05:38 05/29/21 05:38 Sepsis Event Note - Evaluation Sepsis Screening Result: No Definite Risk - Focused Exam Vital Signs: Vital Signs Temp Pulse Resp BP Pulse Ox 05/28/21 20:30 37.1 C 82 16 122/72 97 - Problem List & Annotations (1) Acute respiratory failure due to COVID-19 SNOMED Code(s): 826324325 Code(s): U07.1 - COVID-19; J96.00 - ACUTE RESPIRATORY FAILURE, UNSP W HYPOXIA OR HYPERCAPNIA Status: Resolved Priority: High Current Visit: Yes (2) Pneumonia due to COVID-19 virus SNOMED Code(s): 880450861327556523 Code(s): U07.1 - COVID-19; J12.82 - PNEUMONIA DUE TO CORONAVIRUS DISEASE 2019 Status: Acute Priority: High Current Visit: Yes - Problem List Review Problem List Initiated/Reviewed/Updated: Yes - My Orders Last 24 Hours: My Active Orders 05/28/21 06:48 Cardiac Monitoring [RC] CONTINUOUS Oxygen Therapy [RC] PRN RT Aerosol Therapy [RC] ASDIRECTED Up ad Josee [RC] ASDIRECTED VTE/DVT Education [RC] PER UNIT ROUTINE Vital Signs [RC] ,,, Albuterol/Ipratropium [DuoNeb 3.0-0.5 MG/3 ML] 3 ml NEB Q4H PRN Docusate Sodium [Colace] 100 mg PO BID PRN Morphine 2 mg IVPUSH Q2H PRN Ondansetron [Zofran ODT] 4 mg PO Q4H PRN Temazepam [Restoril] 15 mg PO BEDTIME PRN oxyCODONE 5 mg PO Q4H PRN 05/28/21 07:00 cefTRIAXone [Rocephin] 2 gm Sodium Chloride 0.9% [Normal Saline] 100 ml IV Q24H 05/28/21 09:00 Enoxaparin [Lovenox] 40 mg SUBCUT DAILY 05/28/21 16:42 Codeine/guaiFENesin [Robitussin AC] 5 ml PO Q4H PRN 05/28/21 Dinner Regular Diet [DIET] 05/28/21 20:00 Remdesivir 100 mg Sodium Chloride 0.9% [Normal Saline] 100 ml IV Q24H 05/29/21 05:38 C-REACTIVE PROTEIN [CHEM] AM COMPREHENSIVE METABOLIC PN,CMP [CHEM] AM D-DIMER QUANTITATIVE [COAG] AM MAGNESIUM [CHEM] AM - Plan Plan:: The patient is a 56-year-old lady who has been admitted to acute inpatient hospitalization secondary to acute respiratory failure due to COVID-19 pneumoni a. The patient is outside the window for remdesivir. She has been started on dexamethasone. The patient also spiked a fever yesterday and blood cultures were ordered. The patient was started on ceftriaxone 2 g IV on a daily basis. Repeat laboratory studies have been ordered. The patient will have her oxygen adjusted to keep her saturations around 90 to 92%. The patient will have a regular diet as tolerated. She is also anticoagulated with the use of Lovenox 40 mg subcutaneous daily. The patient has been encouraged to ambulate. 05/29/2021 Patient is a 56-year-old lady who is doing much better since her admission. The patient is currently on room air. She is still on dexamethasone and remdesivir. It is likely that the patient may be appropriate for discharge before completion of her remdesivir due to her overall rapid improvement. She should be appropriate for discharge tomorrow. The patient is also on ceftriaxone. Repeat laboratory studies have been ordered. The patient is also on DVT prophylaxis with the use of Lovenox 40 mg subcutaneous daily. Patient also has been encouraged to ambulate.
[2021-05-29] MEDS: Enoxaparin 40 MG/0.4 ML Syringe SUBCUT SCH (09:29)
[2021-05-29] MEDS ORDERED: Aluminum Hydroxide/Magnesium Hydroxide/Simethicone Susp 30 ML Cup PO ONE (14:30)
[2021-05-29] MEDS: REMDESIVIR 100 MG in Sodium Chloride 0.9% 100 ML IV SCH (21:01)
[2021-05-29] MEDS: Temazepam 15 MG Cap PO PRN (21:02)
[2021-05-30] MEDS: Codeine/guaiFENesin 10-100 MG/5 ML Syrup 5 ML Cup PO PRN ×4 (05:28→21:00)
[2021-05-30] MEDS: Acetaminophen 325 MG Tab PO PRN ×3 (05:28→20:54)
[2021-05-30] MEDS: cefTRIAXone 2 GM in Sodium Chloride 0.9% 100 ML IV SCH (06:50)
[2021-05-30] MEDS ORDERED: Potassium Chloride 20 MEQ Tab.ER PO ONE (08:46)
--- NOTE | 2021-05-30 08:52 | PCM.PN ---
- General Info Date of Service: 05/30/21 Admission Dx/Problem (Free Text): Admission Diagnosis/Problem Admission Diagnosis/Problem Hypoxia Subjective Update: The patient is a 56-year-old who was admitted secondary to hypoxia associated with COVID-19 symptoms. She has been on room air for greater than 24 hours. The patient has denied any pain. She is breathing better. She has no other complaints today. She has been tolerating her diet. The patient says that she is overall feeling better. She continues to have a poor appetite because she has very little taste. Today is day 4 of remdesivir. Functional Status: Reports: Pain Controlled - Review of Systems General: Reports: No Symptoms HEENT: Reports: No Symptoms Pulmonary: Reports: No Symptoms Cardiovascular: Reports: No Symptoms - Patient Data Vitals - Most Recent: Last Vital Signs Temp 99.6 F 05/30/21 06:10 Pulse 81 05/30/21 05:15 Resp 18 05/30/21 05:15 BP 125/58 L 05/30/21 05:15 Pulse Ox 90 L 05/30/21 05:58 Weight - Most Recent: 233 lb I&O - Last 24 Hours: Intake & Output 05/29/21 05/30/21 05/30/21 22:59 06:59 14:59 Intake Total 920 1000 Output Total 500 700 Balance 420 300 Lab Results Last 24 Hours: Laboratory Results - last 24 hr 05/30/21 05/30/21 Range/Units 06:08 06:08 WBC 5.65 (3.98-10.04) K/mm3 RBC 4.91 (3.98-5.22) M/mm3 Hgb 13.5 (11.2-15.7) gm/dl Hct 40.3 (34.1-44.9) % MCV 82.1 (79.4-94.8) fl MCH 27.5 (25.6-32.2) pg MCHC 33.5 (32.2-35.5) g/dl RDW Std Deviation 38.9 (36.4-46.3) fL Plt Count 310 (182-369) K/mm3 MPV 9.0 L (9.4-12.3) fl Neut % (Auto) 71.8 H (34.0-71.1) % Lymph % (Auto) 18.1 L (19.3-51.7) % [place] % (Auto) 9.0 (4.7-12.5) % Eos % (Auto) 0 L (0.7-5.8) Baso % (Auto) 0.4 (0.1-1.2) % Neut # (Auto) 4.06 (1.56-6.13) K/mm3 Lymph # (Auto) 1.02 L (1.18-3.74) K/mm3 [place] # (Auto) 0.51 H (0.24-0.36) K/mm3 Eos # (Auto) 0.00 L (0.04-0.36) K/mm3 Baso # (Auto) 0.02 (0.01-0.08) K/mm3 Manual Slide Review Normal smear Sodium 137 (136-145) mEq/L Potassium 3.2 L (3.5-5.1) mEq/L Chloride 100 (98-107) mEq/L Carbon Dioxide 26 (21-32) mEq/L Anion Gap 14.2 (5-15) BUN 10 (7-18) mg/dL Creatinine 0.8 (0.55-1.02) mg/dL Est Cr Clr Drug Dosing 81.10 mL/min Estimated GFR (MDRD) > 60 (>60) mL/min BUN/Creatinine Ratio 12.5 L (14-18) Glucose 110 H (70-99) mg/dL Calcium 8.2 L (8.5-10.1) mg/dL Magnesium 2.0 (1.8-2.4) mg/dL Total Bilirubin 0.6 (0.2-1.0) mg/dL AST 35 (15-37) U/L ALT 42 (14-59) U/L Alkaline Phosphatase 39 L (46-116) U/L Total Protein 6.3 L (6.4-8.2) g/dl Albumin 2.7 L (3.4-5.0) g/dl Globulin 3.6 gm/dL Albumin/Globulin Ratio 0.8 L (1-2) Jorge Results Last 24 Hours: Microbiology 05/27/21 22:15 Blood Culture - Preliminary Blood - Venous - Lab Draw 05/27/21 22:05 Blood Culture - Preliminary Blood - Venous Med Orders - Current: Current Medications Acetaminophen (Acetaminophen 325 Mg Tab) 650 mg PO Q4H PRN PRN Reason: Pain/Fever Last Admin: 05/30/21 05:28 Dose: 650 mg Documented by: Albuterol/Ipratropium (Albuterol/Ipratropium 3.0-0.5 Mg/3 Ml Neb Soln) 3 ml NEB Q4H PRN PRN Reason: Shortness Of Breath/wheezing Docusate Sodium (Docusate Sodium 100 Mg Cap) 100 mg PO BID PRN PRN Reason: Constipation Enoxaparin Sodium (Enoxaparin 40 Mg/0.4 Ml Syringe) 40 mg SUBCUT DAILY [facility] Last Admin: 05/29/21 09:29 Dose: 40 mg Documented by: Guaifenesin/Codeine Phosphate (Codeine/Guaifenesin 10-100 Mg/5 Ml Syrup 5 Ml Cup) 10 ml PO Q4H PRN PRN Reason: Cough Last Admin: 05/30/21 05:28 Dose: 10 ml Documented by: Ceftriaxone Sodium 2 gm/ (Sodium Chloride) 100 mls @ 200 mls/hr IV Q24H [facility] Last Admin: 05/30/21 06:50 Dose: 200 mls/hr Documented by: Remdesivir 100 mg/ Sodium (Chloride) 100 mls @ 100 mls/hr IV Q24H [facility] Stop: 05/31/21 20:59 Last Admin: 05/29/21 21:01 Dose: 100 mls/hr Documented by: Loperamide HCl (Loperamide 2 Mg Cap) 4 mg PO ASDIRECTED PRN PRN Reason: Diarrhea Last Admin: 05/27/21 22:18 Dose: 4 mg Documented by: Ondansetron HCl (Ondansetron 4 Mg/2 Ml Sdv) 4 mg IVPUSH Q6H PRN PRN Reason: Nausea Ondansetron HCl (Ondansetron 4 Mg Tab.Dis) 4 mg PO Q4H PRN PRN Reason: nausea, able to take PO Oxycodone HCl (Oxycodone 5 Mg Tab) 5 mg PO Q4H PRN PRN Reason: Pain (moderate 4-6) Sodium Chloride (Sodium Chloride 0.9% 10 Ml Syringe) 10 ml FLUSH ASDIRECTED PRN PRN Reason: Keep Vein Open Last Admin: 05/27/21 19:55 Dose: 10 ml Documented by: Temazepam (Temazepam 15 Mg Cap) 15 mg PO BEDTIME PRN PRN Reason: Sleep Last Admin: 05/29/21 21:02 Dose: 15 mg Documented by: Discontinued Medications Al Hydroxide/Mg Hydroxide (Aluminum Hydroxide/Magnesium Hydroxide/Simethicone Susp 30 Ml Cup) 30 ml PO ONETIME ONE Stop: 05/29/21 14:31 Last Admin: 05/29/21 15:19 Dose: 30 ml Documented by: Dexamethasone (Dexamethasone 4 Mg Tab) 6 mg PO ONETIME ONE Stop: 05/27/21 18:09 Last Admin: 05/27/21 19:51 Dose: 6 mg Documented by: Enoxaparin Sodium (Enoxaparin 40 Mg/0.4 Ml Syringe) 40 mg SUBCUT ONETIME ONE Stop: 05/27/21 19:58 Last Admin: 05/27/21 20:11 Dose: 40 mg Documented by: Guaifenesin/Codeine Phosphate (Codeine/Guaifenesin 10-100 Mg/5 Ml Syrup 5 Ml Cup) 5 ml PO Q4H PRN PRN Reason: Cough Last Admin: 05/29/21 15:19 Dose: 5 ml Documented by: Remdesivir 200 mg/ Sodium (Chloride) 250 mls @ 250 mls/hr IV ONETIME ONE Stop: 05/27/21 19:55 Last Admin: 05/27/21 20:12 Dose: 250 mls/hr Documented by: Ceftriaxone Sodium 2 gm/ (Sodium Chloride) 100 mls @ 200 mls/hr IV Q24H [facility] Ceftriaxone Sodium 1 gm/ (Sodium Chloride) 100 mls @ 200 mls/hr IV Q24H [facility] Morphine Sulfate (Morphine 2 Mg/Ml Syringe) 2 mg IVPUSH Q2H PRN PRN Reason: Pain (severe 7-10) Stop: 05/29/21 06:48 Nicotine (Nicotine 14 Mg/24 Hr Patch) 14 mg TRDERM DAILY [facility] Last Admin: 05/28/21 09:16 Dose: Not Given Documented by: Ondansetron HCl (Ondansetron 4 Mg/2 Ml Sdv) 4 mg IVPUSH ONETIME ONE Stop: 05/27/21 19:59 Last Admin: 05/27/21 20:12 Dose: 4 mg Documented by: Potassium Bicarbonate (Potassium Bicarbonate/Cit Ac 20 Meq Effervescent Tab) 20 meq PO ONETIME ONE Stop: 05/28/21 07:11 Last Admin: 05/28/21 08:48 Dose: 20 meq Documented by: Potassium Chloride (Potassium Chloride 20 Meq Tab.Er) 40 meq PO ONETIME ONE Stop: 05/30/21 08:47 - Exam Quality Assessment: No: Supplemental Oxygen General: Alert, Oriented HEENT: Pupils Equal, Mucous Membr. Moist/[place] Neck: Supple Lungs: Normal Respiratory Effort, Crackles (Bibasilar), Rhonchi (Left lower lobe) Cardiovascular: Regular Rate, Regular Rhythm GI/Abdominal Exam: Normal Bowel Sounds, Soft, Non-Tender, No Distention Extremities: Normal Inspection, Normal Range of Motion, Non-Tender, No Pedal Edema, Normal Capillary Refill Skin: Warm, Dry, Intact Psy/Mental Status: Alert, Normal Affect, Normal Mood - Patient Data Lab Results Last 24 hrs: Laboratory Results - last 24 hr 05/30/21 05/30/21 Range/Units 06:08 06:08 WBC 5.65 (3.98-10.04) K/mm3 RBC 4.91 (3.98-5.22) M/mm3 Hgb 13.5 (11.2-15.7) gm/dl Hct 40.3 (34.1-44.9) % MCV 82.1 (79.4-94.8) fl MCH 27.5 (25.6-32.2) pg MCHC 33.5 (32.2-35.5) g/dl RDW Std Deviation 38.9 (36.4-46.3) fL Plt Count 310 (182-369) K/mm3 MPV 9.0 L (9.4-12.3) fl Neut % (Auto) 71.8 H (34.0-71.1) % Lymph % (Auto) 18.1 L (19.3-51.7) % [place] % (Auto) 9.0 (4.7-12.5) % Eos % (Auto) 0 L (0.7-5.8) Baso % (Auto) 0.4 (0.1-1.2) % Neut # (Auto) 4.06 (1.56-6.13) K/mm3 Lymph # (Auto) 1.02 L (1.18-3.74) K/mm3 [place] # (Auto) 0.51 H (0.24-0.36) K/mm3 Eos # (Auto) 0.00 L (0.04-0.36) K/mm3 Baso # (Auto) 0.02 (0.01-0.08) K/mm3 Manual Slide Review Normal smear Sodium 137 (136-145) mEq/L Potassium 3.2 L (3.5-5.1) mEq/L Chloride 100 (98-107) mEq/L Carbon Dioxide 26 (21-32) mEq/L Anion Gap 14.2 (5-15) BUN 10 (7-18) mg/dL Creatinine 0.8 (0.55-1.02) mg/dL Est Cr Clr Drug Dosing 81.10 mL/min Estimated GFR (MDRD) > 60 (>60) mL/min BUN/Creatinine Ratio 12.5 L (14-18) Glucose 110 H (70-99) mg/dL Calcium 8.2 L (8.5-10.1) mg/dL Magnesium 2.0 (1.8-2.4) mg/dL Total Bilirubin 0.6 (0.2-1.0) mg/dL AST 35 (15-37) U/L ALT 42 (14-59) U/L Alkaline Phosphatase 39 L (46-116) U/L Total Protein 6.3 L (6.4-8.2) g/dl Albumin 2.7 L (3.4-5.0) g/dl Globulin 3.6 gm/dL Albumin/Globulin Ratio 0.8 L (1-2) Result Diagrams: 05/30/21 06:08 05/30/21 06:08 Jorge Results Last 24 hrs: Microbiology 05/27/21 22:15 Blood Culture - Preliminary Blood - Venous - Lab Draw 05/27/21 22:05 Blood Culture - Preliminary Blood - Venous Sepsis Event Note - Evaluation Sepsis Screening Result: Sepsis Risk - Focused Exam Vital Signs: Vital Signs Temp Temp Pulse Resp BP Pulse Ox Pulse Ox 05/30/21 06:10 99.6 F 05/30/21 05:58 90 L 05/30/21 05:28 101.4 F H 05/30/21 05:15 101.5 F H 81 18 125/58 L 93 L 05/30/21 01:12 99.0 F 18 95 05/30/21 00:54 99.0 F 71 18 99/60 93 L 05/29/21 22:01 95 05/29/21 21:21 100.2 F 103 H 18 91 L 05/29/21 21:02 100.2 F - Problem List & Annotations (1) Pneumonia due to COVID-19 virus SNOMED Code(s): 250606386294898826 Code(s): U07.1 - COVID-19; J12.82 - PNEUMONIA DUE TO CORONAVIRUS DISEASE 2019 Status: Acute Priority: High Current Visit: Yes - Problem List Review Problem List Initiated/Reviewed/Updated: Yes - Plan Plan:: The patient is a 56-year-old lady who has been admitted to acute inpatient hospitalization secondary to acute respiratory failure due to COVID-19 pneumonia. The patient is outside the window for remdesivir. She has been started on dexamethasone. The patient also spiked a fever yesterday and blood cultures were ordered. The patient was started on ceftriaxone 2 g IV on a daily basis. Repeat laboratory studies have been ordered. The patient will have her oxygen adjusted to keep her saturations around 90 to 92%. The patient will have a regular diet as tolerated. She is also anticoagulated with the use of Lovenox 40 mg subcutaneous daily. The patient has been encouraged to ambulate. 05/29/2021 Patient is a 56-year-old lady who is doing much better since her admission. The patient is currently on room air. She is still on dexamethasone and remdesivir. It is likely that the patient may be appropriate for discharge before completion of her remdesivir due to her overall rapid improvement. She should be appropriate for discharge tomorrow. The patient is also on ceftriaxone. Repeat laboratory studies have been ordered. The patient is also on DVT prophylaxis with the use of Lovenox 40 mg subcutaneous daily. Patient also has been encouraged to ambulate. 05/30/2021 56-year-old female who was admitted secondary to hypoxemia. She was diagnosed with COVID-19 pneumonia. She is on day 4 of remdesivir and has been on room air for over 24 hours. Unfortunately, her oxygen saturations continued to be in the low 90s. They appeared to maintain in the low 90s when she ambulates in her room. Patient did have a fever this morning over 101x2. For symptoms of Covid were greater than 10 days ago. Chest x-ray showed diffuse increased density within both sides of the chest which are felt compatible with stable Covid pneumonia. Plan Continue monitoring O2 status Continue remdesivir and ceftriaxone. Add azithromycin since she continues to have a fever Get procalcitonin. Hopefully they will be available tomorrow. If continue to improve and afebrile for the rest of the day consider discharge tomorrow. VTE prophylaxis with Lovenox. CODE STATUS full code
[2021-05-30] MEDS: Enoxaparin 40 MG/0.4 ML Syringe SUBCUT SCH (09:30)
--- NOTE | 2021-05-30 11:57 | CR ---
Chest: Frontal view of the chest was obtained. Comparison: Prior chest x-ray of 05/27/21. Increased density is noted within both lung cruz. Distribution appears fairly similar to prior exam. No acute parenchymal change is otherwise seen. Heart size and mediastinum are normal. Bony structures show nothing acute. Impression: 1. Diffuse increased density within both sides of the chest which are felt compatible with stable COVID pneumonia. Diagnostic code #3
[2021-05-30] MEDS: Azithromycin 250 MG Tab PO SCH (15:52)
[2021-05-30] MEDS: REMDESIVIR 100 MG in Sodium Chloride 0.9% 100 ML IV SCH (19:53)
[2021-05-30] MEDS: Temazepam 15 MG Cap PO PRN (20:55)
[2021-05-31] MEDS: Codeine/guaiFENesin 10-100 MG/5 ML Syrup 5 ML Cup PO PRN ×5 (03:54→22:27)
[2021-05-31] MEDS: Acetaminophen 325 MG Tab PO PRN ×2 (04:01→20:21)
[2021-05-31] MEDS: cefTRIAXone 2 GM in Sodium Chloride 0.9% 100 ML IV SCH (06:24)
[2021-05-31] MEDS: Enoxaparin 40 MG/0.4 ML Syringe SUBCUT SCH (08:42)
[2021-05-31] MEDS: Dexamethasone 4 MG Tab PO SCH (08:42)
--- NOTE | 2021-05-31 14:10 | PCM.PN ---
- General Info Date of Service: 05/31/21 Admission Dx/Problem (Free Text): Admission Diagnosis/Problem Admission Diagnosis/Problem Hypoxia Subjective Update: The patient is a 56-year-old who was admitted secondary to hypoxia associated with COVID-19 symptoms. Patient required 1 L of oxygen via nasal cannula yesterday and overnight. This morning she is back to room air. Her C-reactive protein did jump from 6-20 and her albumin dropped to 2.5. She also had a te mperature of 101.1 yesterday afternoon. Overall she states she is feeling well. Functional Status: Reports: Pain Controlled - Review of Systems General: Reports: Fatigue HEENT: Reports: No Symptoms Pulmonary: Reports: Cough Cardiovascular: Reports: No Symptoms Gastrointestinal: Reports: No Symptoms Psychiatric: Reports: No Symptoms - Patient Data Vitals - Most Recent: Last Vital Signs Temp 98.4 F 05/31/21 08:37 Pulse 87 05/31/21 08:53 Resp 19 05/31/21 08:37 BP 130/87 05/31/21 08:37 Pulse Ox 93 L 05/31/21 10:00 Weight - Most Recent: 233 lb I&O - Last 24 Hours: Intake & Output 05/30/21 05/31/21 05/31/21 22:59 06:59 14:59 Intake Total 3191 039 0973 Output Total 2050 300 1201 Balance -950 300 399 Lab Results Last 24 Hours: Laboratory Results - last 24 hr 05/30/21 05/31/21 05/31/21 Range/Units 06:08 05:35 05:35 WBC 6.75 (3.98-10.04) K/mm3 RBC 4.81 (3.98-5.22) M/mm3 Hgb 13.2 (11.2-15.7) gm/dl Hct 39.5 (34.1-44.9) % MCV 82.1 (79.4-94.8) fl MCH 27.4 (25.6-32.2) pg MCHC 33.4 (32.2-35.5) g/dl RDW Std Deviation 38.8 (36.4-46.3) fL Plt Count 326 (182-369) K/mm3 MPV 9.2 L (9.4-12.3) fl Neut % (Auto) 75.2 H (34.0-71.1) % Lymph % (Auto) 10.5 L (19.3-51.7) % [place] % (Auto) 11.1 (4.7-12.5) % Eos % (Auto) 1.9 (0.7-5.8) Baso % (Auto) 0.3 (0.1-1.2) % Neut # (Auto) 5.07 (1.56-6.13) K/mm3 Lymph # (Auto) 0.71 L (1.18-3.74) K/mm3 [place] # (Auto) 0.75 H (0.24-0.36) K/mm3 Eos # (Auto) 0.13 (0.04-0.36) K/mm3 Baso # (Auto) 0.02 (0.01-0.08) K/mm3 Manual Slide Review Normal smear D-Dimer, Quantitative 0.91 H (0.19-0.50) mg/L Sodium (136-145) mEq/L Potassium (3.5-5.1) mEq/L Chloride (98-107) mEq/L Carbon Dioxide (21-32) mEq/L Anion Gap (5-15) BUN (7-18) mg/dL Creatinine (0.55-1.02) mg/dL Est Cr Clr Drug Dosing mL/min Estimated GFR (MDRD) (>60) mL/min BUN/Creatinine Ratio (14-18) Glucose (70-99) mg/dL Calcium (8.5-10.1) mg/dL Phosphorus (2.6-4.7) mg/dL Magnesium (1.8-2.4) mg/dL Total Bilirubin (0.2-1.0) mg/dL AST (15-37) U/L ALT (14-59) U/L Alkaline Phosphatase (46-116) U/L C-Reactive Protein (<1.0) mg/dL Total Protein (6.4-8.2) g/dl Albumin (3.4-5.0) g/dl Globulin gm/dL Albumin/Globulin Ratio (1-2) Procalcitonin 0.20 H ng/mL 05/31/21 Range/Units 05:35 WBC (3.98-10.04) K/mm3 RBC (3.98-5.22) M/mm3 Hgb (11.2-15.7) gm/dl Hct (34.1-44.9) % MCV (79.4-94.8) fl MCH (25.6-32.2) pg MCHC (32.2-35.5) g/dl RDW Std Deviation (36.4-46.3) fL Plt Count (182-369) K/mm3 MPV (9.4-12.3) fl Neut % (Auto) (34.0-71.1) % Lymph % (Auto) (19.3-51.7) % [place] % (Auto) (4.7-12.5) % Eos % (Auto) (0.7-5.8) Baso % (Auto) (0.1-1.2) % Neut # (Auto) (1.56-6.13) K/mm3 Lymph # (Auto) (1.18-3.74) K/mm3 [place] # (Auto) (0.24-0.36) K/mm3 Eos # (Auto) (0.04-0.36) K/mm3 Baso # (Auto) (0.01-0.08) K/mm3 Manual Slide Review D-Dimer, Quantitative (0.19-0.50) mg/L Sodium 138 (136-145) mEq/L Potassium 3.6 (3.5-5.1) mEq/L Chloride 102 (98-107) mEq/L Carbon Dioxide 29 (21-32) mEq/L Anion Gap 10.6 (5-15) BUN 10 (7-18) mg/dL Creatinine 0.8 (0.55-1.02) mg/dL Est Cr Clr Drug Dosing 81.10 mL/min Estimated GFR (MDRD) > 60 (>60) mL/min BUN/Creatinine Ratio 12.5 L (14-18) Glucose 119 H (70-99) mg/dL Calcium 8.1 L (8.5-10.1) mg/dL Phosphorus 2.6 (2.6-4.7) mg/dL Magnesium 2.1 (1.8-2.4) mg/dL Total Bilirubin 0.5 (0.2-1.0) mg/dL AST 30 (15-37) U/L ALT 43 (14-59) U/L Alkaline Phosphatase 39 L (46-116) U/L C-Reactive Protein 20.1 H* (<1.0) mg/dL Total Protein 6.1 L (6.4-8.2) g/dl Albumin 2.5 L (3.4-5.0) g/dl Globulin 3.6 gm/dL Albumin/Globulin Ratio 0.7 L (1-2) Procalcitonin ng/mL Med Orders - Current: Current Medications Acetaminophen (Acetaminophen 325 Mg Tab) 650 mg PO Q4H PRN PRN Reason: Pain/Fever Last Admin: 05/31/21 04:01 Dose: 650 mg Documented by: Albuterol/Ipratropium (Albuterol/Ipratropium 3.0-0.5 Mg/3 Ml Neb Soln) 3 ml NEB Q4H PRN PRN Reason: Shortness Of Breath/wheezing Azithromycin (Azithromycin 250 Mg Tab) 500 mg PO Q24H [facility] Stop: 06/01/21 16:01 Last Admin: 05/30/21 15:52 Dose: 500 mg Documented by: Dexamethasone (Dexamethasone 4 Mg Tab) 6 mg PO Q24H [facility] Stop: 06/09/21 09:01 Last Admin: 05/31/21 08:42 Dose: 6 mg Documented by: Docusate Sodium (Docusate Sodium 100 Mg Cap) 100 mg PO BID PRN PRN Reason: Constipation Enoxaparin Sodium (Enoxaparin 40 Mg/0.4 Ml Syringe) 40 mg SUBCUT DAILY [facility] Last Admin: 05/31/21 08:42 Dose: 40 mg Documented by: Guaifenesin/Codeine Phosphate (Codeine/Guaifenesin 10-100 Mg/5 Ml Syrup 5 Ml Cup) 10 ml PO Q4H PRN PRN Reason: Cough Last Admin: 05/31/21 13:56 Dose: 10 ml Documented by: Ceftriaxone Sodium 2 gm/ (Sodium Chloride) 100 mls @ 200 mls/hr IV Q24H [facility] Last Admin: 05/31/21 06:24 Dose: 200 mls/hr Documented by: Remdesivir 100 mg/ Sodium (Chloride) 100 mls @ 100 mls/hr IV Q24H [facility] Stop: 05/31/21 20:59 Last Admin: 05/30/21 19:53 Dose: 100 mls/hr Documented by: Loperamide HCl (Loperamide 2 Mg Cap) 4 mg PO ASDIRECTED PRN PRN Reason: Diarrhea Last Admin: 05/27/21 22:18 Dose: 4 mg Documented by: Ondansetron HCl (Ondansetron 4 Mg/2 Ml Sdv) 4 mg IVPUSH Q6H PRN PRN Reason: Nausea Ondansetron HCl (Ondansetron 4 Mg Tab.Dis) 4 mg PO Q4H PRN PRN Reason: nausea, able to take PO Oxycodone HCl (Oxycodone 5 Mg Tab) 5 mg PO Q4H PRN PRN Reason: Pain (moderate 4-6) Sodium Chloride (Sodium Chloride 0.9% 10 Ml Syringe) 10 ml FLUSH ASDIRECTED PRN PRN Reason: Keep Vein Open Last Admin: 05/27/21 19:55 Dose: 10 ml Documented by: Temazepam (Temazepam 15 Mg Cap) 15 mg PO BEDTIME PRN PRN Reason: Sleep Last Admin: 05/30/21 20:55 Dose: 15 mg Documented by: Discontinued Medications Al Hydroxide/Mg Hydroxide (Aluminum Hydroxide/Magnesium Hydroxide/Simethicone Susp 30 Ml Cup) 30 ml PO ONETIME ONE Stop: 05/29/21 14:31 Last Admin: 05/29/21 15:19 Dose: 30 ml Documented by: Dexamethasone (Dexamethasone 4 Mg Tab) 6 mg PO ONETIME ONE Stop: 05/27/21 18:09 Last Admin: 05/27/21 19:51 Dose: 6 mg Documented by: Enoxaparin Sodium (Enoxaparin 40 Mg/0.4 Ml Syringe) 40 mg SUBCUT ONETIME ONE Stop: 05/27/21 19:58 Last Admin: 05/27/21 20:11 Dose: 40 mg Documented by: Guaifenesin/Codeine Phosphate (Codeine/Guaifenesin 10-100 Mg/5 Ml Syrup 5 Ml Cup) 5 ml PO Q4H PRN PRN Reason: Cough Last Admin: 05/29/21 15:19 Dose: 5 ml Documented by: Remdesivir 200 mg/ Sodium (Chloride) 250 mls @ 250 mls/hr IV ONETIME ONE Stop: 05/27/21 19:55 Last Admin: 05/27/21 20:12 Dose: 250 mls/hr Documented by: Ceftriaxone Sodium 2 gm/ (Sodium Chloride) 100 mls @ 200 mls/hr IV Q24H [facility] Ceftriaxone Sodium 1 gm/ (Sodium Chloride) 100 mls @ 200 mls/hr IV Q24H [facility] Morphine Sulfate (Morphine 2 Mg/Ml Syringe) 2 mg IVPUSH Q2H PRN PRN Reason: Pain (severe 7-10) Stop: 05/29/21 06:48 Nicotine (Nicotine 14 Mg/24 Hr Patch) 14 mg TRDERM DAILY [facility] Last Admin: 05/28/21 09:16 Dose: Not Given Documented by: Ondansetron HCl (Ondansetron 4 Mg/2 Ml Sdv) 4 mg IVPUSH ONETIME ONE Stop: 05/27/21 19:59 Last Admin: 05/27/21 20:12 Dose: 4 mg Documented by: Potassium Bicarbonate (Potassium Bicarbonate/Cit Ac 20 Meq Effervescent Tab) 20 meq PO ONETIME ONE Stop: 05/28/21 07:11 Last Admin: 05/28/21 08:48 Dose: 20 meq Documented by: Potassium Chloride (Potassium Chloride 20 Meq Tab.Er) 40 meq PO ONETIME ONE Stop: 05/30/21 08:47 Last Admin: 05/30/21 09:30 Dose: 40 meq Documented by: - Exam Quality Assessment: Supplemental Oxygen General: Alert, Oriented HEENT: Pupils Equal, Mucous Membr. Moist/[place] Neck: Supple Lungs: Normal Respiratory Effort, Crackles (Bibasilar worse than the left lower and middle lobe) Cardiovascular: Regular Rate, Regular Rhythm GI/Abdominal Exam: Normal Bowel Sounds, Soft, Non-Tender, No Distention Extremities: Normal Inspection, Normal Range of Motion, No Pedal Edema, Normal Capillary Refill Skin: Warm, Dry, Intact Psy/Mental Status: Alert, Normal Affect, Normal Mood - Patient Data Lab Results Last 24 hrs: Laboratory Results - last 24 hr 05/30/21 05/31/21 05/31/21 Range/Units 06:08 05:35 05:35 WBC 6.75 (3.98-10.04) K/mm3 RBC 4.81 (3.98-5.22) M/mm3 Hgb 13.2 (11.2-15.7) gm/dl Hct 39.5 (34.1-44.9) % MCV 82.1 (79.4-94.8) fl MCH 27.4 (25.6-32.2) pg MCHC 33.4 (32.2-35.5) g/dl RDW Std Deviation 38.8 (36.4-46.3) fL Plt Count 326 (182-369) K/mm3 MPV 9.2 L (9.4-12.3) fl Neut % (Auto) 75.2 H (34.0-71.1) % Lymph % (Auto) 10.5 L (19.3-51.7) % [place] % (Auto) 11.1 (4.7-12.5) % Eos % (Auto) 1.9 (0.7-5.8) Baso % (Auto) 0.3 (0.1-1.2) % Neut # (Auto) 5.07 (1.56-6.13) K/mm3 Lymph # (Auto) 0.71 L (1.18-3.74) K/mm3 [place] # (Auto) 0.75 H (0.24-0.36) K/mm3 Eos # (Auto) 0.13 (0.04-0.36) K/mm3 Baso # (Auto) 0.02 (0.01-0.08) K/mm3 Manual Slide Review Normal smear D-Dimer, Quantitative 0.91 H (0.19-0.50) mg/L Sodium (136-145) mEq/L Potassium (3.5-5.1) mEq/L Chloride (98-107) mEq/L Carbon Dioxide (21-32) mEq/L Anion Gap (5-15) BUN (7-18) mg/dL Creatinine (0.55-1.02) mg/dL Est Cr Clr Drug Dosing mL/min Estimated GFR (MDRD) (>60) mL/min BUN/Creatinine Ratio (14-18) Glucose (70-99) mg/dL Calcium (8.5-10.1) mg/dL Phosphorus (2.6-4.7) mg/dL Magnesium (1.8-2.4) mg/dL Total Bilirubin (0.2-1.0) mg/dL AST (15-37) U/L ALT (14-59) U/L Alkaline Phosphatase (46-116) U/L C-Reactive Protein (<1.0) mg/dL Total Protein (6.4-8.2) g/dl Albumin (3.4-5.0) g/dl Globulin gm/dL Albumin/Globulin Ratio (1-2) Procalcitonin 0.20 H ng/mL 05/31/21 Range/Units 05:35 WBC (3.98-10.04) K/mm3 RBC (3.98-5.22) M/mm3 Hgb (11.2-15.7) gm/dl Hct (34.1-44.9) % MCV (79.4-94.8) fl MCH (25.6-32.2) pg MCHC (32.2-35.5) g/dl RDW Std Deviation (36.4-46.3) fL Plt Count (182-369) K/mm3 MPV (9.4-12.3) fl Neut % (Auto) (34.0-71.1) % Lymph % (Auto) (19.3-51.7) % [place] % (Auto) (4.7-12.5) % Eos % (Auto) (0.7-5.8) Baso % (Auto) (0.1-1.2) % Neut # (Auto) (1.56-6.13) K/mm3 Lymph # (Auto) (1.18-3.74) K/mm3 [place] # (Auto) (0.24-0.36) K/mm3 Eos # (Auto) (0.04-0.36) K/mm3 Baso # (Auto) (0.01-0.08) K/mm3 Manual Slide Review D-Dimer, Quantitative (0.19-0.50) mg/L Sodium 138 (136-145) mEq/L Potassium 3.6 (3.5-5.1) mEq/L Chloride 102 (98-107) mEq/L Carbon Dioxide 29 (21-32) mEq/L Anion Gap 10.6 (5-15) BUN 10 (7-18) mg/dL Creatinine 0.8 (0.55-1.02) mg/dL Est Cr Clr Drug Dosing 81.10 mL/min Estimated GFR (MDRD) > 60 (>60) mL/min BUN/Creatinine Ratio 12.5 L (14-18) Glucose 119 H (70-99) mg/dL Calcium 8.1 L (8.5-10.1) mg/dL Phosphorus 2.6 (2.6-4.7) mg/dL Magnesium 2.1 (1.8-2.4) mg/dL Total Bilirubin 0.5 (0.2-1.0) mg/dL AST 30 (15-37) U/L ALT 43 (14-59) U/L Alkaline Phosphatase 39 L (46-116) U/L C-Reactive Protein 20.1 H* (<1.0) mg/dL Total Protein 6.1 L (6.4-8.2) g/dl Albumin 2.5 L (3.4-5.0) g/dl Globulin 3.6 gm/dL Albumin/Globulin Ratio 0.7 L (1-2) Procalcitonin ng/mL Result Diagrams: 05/31/21 05:35 05/31/21 05:35 Sepsis Event Note - Evaluation Sepsis Screening Result: No Definite Risk - Focused Exam Vital Signs: Vital Signs Temp Pulse Resp BP Pulse Ox Pulse Ox 05/31/21 10:00 93 L 05/31/21 08:53 87 94 L 05/31/21 08:39 90 94 L 05/31/21 08:37 98.4 F 85 19 130/87 96 05/31/21 06:23 98.6 F 81 18 117/66 95 05/31/21 04:01 99.1 F 05/31/21 03:54 99.1 F 86 16 138/81 95 - Problem List & Annotations (1) Pneumonia due to COVID-19 virus SNOMED Code(s): 409350740476938741 Code(s): U07.1 - COVID-19; J12.82 - PNEUMONIA DUE TO CORONAVIRUS DISEASE 2019 Status: Acute Priority: High Current Visit: Yes - Problem List Review Problem List Initiated/Reviewed/Updated: Yes - My Orders Last 24 Hours: My Active Orders 05/30/21 16:00 Azithromycin [Zithromax] 500 mg PO Q24H 05/31/21 09:00 dexAMETHasone 6 mg PO Q24H 06/01/21 05:11 C-REACTIVE PROTEIN [CHEM] AM CBC WITH AUTO DIFF [HEME] AM CMP [COMPREHENSIVE METABOLIC PN,CMP] [CHEM] AM MAGNESIUM [CHEM] AM - Plan Plan:: The patient is a 56-year-old lady who has been admitted to acute inpatient hospitalization secondary to acute respiratory failure due to COVID-19 pneumonia. The patient is outside the window for remdesivir. She has been started on dexamethasone. The patient also spiked a fever yesterday and blood cultures were ordered. The patient was started on ceftriaxone 2 g IV on a daily basis. Repeat laboratory studies have been ordered. The patient will have her oxygen adjusted to keep her saturations around 90 to 92%. The patient will have a regular diet as tolerated. She is also anticoagulated with the use of Lovenox 40 mg subcutaneous daily. The patient has been encouraged to ambulate. 05/29/2021 Patient is a 56-year-old lady who is doing much better since her admission. The patient is currently on room air. She is still on dexamethasone and remdesivir. It is likely that the patient may be appropriate for discharge before completion of her remdesivir due to her overall rapid improvement. She should be appropriate for discharge tomorrow. The patient is also on ceftriaxone. Repeat laboratory studies have been ordered. The patient is also on DVT prophylaxis with the use of Lovenox 40 mg subcutaneous daily. Patient also has been encouraged to ambulate. 05/30/2021 56-year-old female who was admitted secondary to hypoxemia. She was diagnosed with COVID-19 pneumonia. She is on day 4 of remdesivir and has been on room air for over 24 hours. Unfortunately, her oxygen saturations continued to be in the low 90s. They appeared to maintain in the low 90s when she ambulates in her room. Patient did have a fever this morning over 101x2. For symptoms of Covid were greater than 10 days ago. Chest x-ray showed diffuse increased density within both sides of the chest which are felt compatible with stable Covid pneumonia. 05/31/2021 56-year-old female with Covid, pneumonia. She did have another temperature of 101 yesterday. Also she had a significant increase in her C-reactive protein from 6 to 20. D-dimer also increased slightly to 0.91 from 0.5. Finally, she also required a small amount of supplemental O2 yesterday afternoon and evening. This morning she is back off of O2. Patient will be kept another day. Start her on dexamethasone and repeat labs in the morning. Procalcitonin is only 0.20 making significant sepsis or bacterial infection less likely. Plan Continue monitoring O2 status Finish remdesivir and ceftriaxone for 5-day course Dexamethasone 6 mg p.o. daily Finish 3 days of azithromycin If continue to improve and afebrile for the rest of the day consider discharge tomorrow. VTE prophylaxis with Lovenox. CODE STATUS full code
[2021-05-31] MEDS: Azithromycin 250 MG Tab PO SCH (15:38)
[2021-05-31] MEDS: REMDESIVIR 100 MG in Sodium Chloride 0.9% 100 ML IV SCH (20:21)
[2021-05-31] MEDS: Temazepam 15 MG Cap PO PRN (20:26)
[2021-06-01] MEDS: cefTRIAXone 2 GM in Sodium Chloride 0.9% 100 ML IV SCH (06:13)
[2021-06-01] MEDS: Codeine/guaiFENesin 10-100 MG/5 ML Syrup 5 ML Cup PO PRN ×2 (06:13→13:30)
[2021-06-01] MEDS: Dexamethasone 4 MG Tab PO SCH (09:43)
[2021-06-01] MEDS: Enoxaparin 40 MG/0.4 ML Syringe SUBCUT SCH (09:43)
--- NOTE | 2021-06-01 11:47 | PCM.DCSUM1 ---
Discharge Summary - Hospital Course HPI Initial Comments: Patient is a 56-year-old lady who had presented to the emergency department for evaluation and worsening of her COVID-19 symptoms. She was tested positive approximately 10 days ago. The patient says that she has been having cough, headaches, fever and chills and associated shortness of breath. The patient says that she has sick contacts at home and her has been Covid positive as well. She has been able to monitor her oxygen saturations at home and at one point her O2 sats were less than 90%. Patient also reports some mild abdominal pain with some nausea and diarrhea. The patient has no chronic medical history. She is not taking any medications other than [id number] meds for allergies. The patient also says that she has not had the vaccine. The patient feels like she has been getting worse over the past several days. The patient is a 56-year-old lady who has been admitted to acute inpatient hospitalization secondary to acute respiratory failure due to COVID-19 pneumonia. The patient is outside the window for remdesivir. She has been started on dexamethasone. The patient also spiked a fever yesterday and blood cultures were ordered. The patient was started on ceftriaxone 2 g IV on a daily basis. Repeat laboratory studies have been ordered. The patient will have her oxygen adjusted to keep her saturations around 90 to 92%. The patient will have a regular diet as tolerated. She is also anticoagulated with the use of Lovenox 40 mg subcutaneous daily. The patient has been encouraged to ambulate. Diagnosis: Stroke: No - Discharge Data Discharge Date: 06/01/21 Discharge Disposition: Home, Self-Care 01 Condition: Good - Referral to Home Health Primary Care Physician: Laura Wen EXCEPTIONAL STUDENT EDUCATION AIDE - Discharge Diagnosis/Problem(s) (1) Pneumonia due to COVID-19 virus SNOMED Code(s): 877200853234718973 ICD Code: U07.1 - COVID-19; J12.82 - PNEUMONIA DUE TO CORONAVIRUS DISEASE 2019 Status: Acute Priority: High Current Visit: Yes - Patient Summary/Data Hospital Course: 56-year-old female admittedsecondary to acute respiratory failure due to COVID- 19 pneumonia. Patient was given supplemental O2, dexamethasone, ceftriaxone, and azithromycin. She did have a significant spike in her C-reactive protein from 6- 20 the day prior to discharge. On the day of discharge her C-reactive protein decreased slightly to nineteen. Patient was afebrile for 48 hours prior to discharge. She had finished a full course of remdesivir and will go home on dexamethasone 6 mg for another 5 days. Repeat chest x-ray showed no change from previous. Procalcitonin was 0.20. She will require 1 L nasal cannula occasionally while sleeping and possibly while ambulating. She will follow up with her primary care provider next week. Return to the emergency department if worsening symptoms. - Discharge Plan *PRESCRIPTION DRUG MONITORING PROGRAM REVIEWED*: No *COPY OF PRESCRIPTION DRUG MONITORING REPORT IN PATIENT NELIA: No Prescriptions/Med Rec: dexAMETHasone [Dexamethasone] 6 mg PO Q24H #8 tablet Benzonatate [Tessalon Perle] 200 mg PO TID PRN #30 capsule PRN Reason: Cough Home Medications: Home Meds Ibuprofen 800 mg PO TID PRN #20 tablet 01/05/16 [Rx] Celecoxib [CeleBREX] 50 mg PO DAILY PRN 05/27/21 [History] Benzonatate [Tessalon Perle] 200 mg PO TID PRN #30 capsule 06/01/21 [Rx] dexAMETHasone [Dexamethasone] 6 mg PO Q24H #8 tablet 06/01/21 [Rx] Oxygen Therapy Mode: Nasal Cannula Oxygen Flow Rate (L/min): 1 Maintain SpO2% greater than: 91 Patient Handouts: COVID-19 Frequently Asked Questions, COVID-19, 10 Things You Can Do to Manage Your COVID-19 Symptoms at Home - [facility] (03/17/2021), Sepsis, Self Care, Adult Referrals: Laura Wen EXCEPTIONAL STUDENT EDUCATION AIDE [Primary Care Provider] - 06/08/21 11:00 am (Please arrive 15 minutes prior to your appointment.) - Discharge Summary/Plan Comment DC Time >30 min.: Yes Total # of Minutes for Discharge Time: 40 minutes to see the patient, do paperwork, and arrange oxygen. - General Info Date of Service: 06/01/21 Admission Dx/Problem (Free Text: Admission Diagnosis/Problem Admission Diagnosis/Problem Hypoxia Subjective Update: 56-year-old female with COVID-19 pneumonia. Patient states she is feeling well and feels that she can go home. She is currently on room air, but did require 0.5 to 1 L overnight. Functional Status: Reports: Pain Controlled - Review of Systems General: Reports: No Symptoms HEENT: Reports: No Symptoms Pulmonary: Reports: Cough. Denies: Shortness of Breath Cardiovascular: Reports: No Symptoms Gastrointestinal: Reports: No Symptoms Genitourinary: Reports: No Symptoms - Patient Data Vitals - Most Recent: Last Vital Signs Temp 97.9 F 06/01/21 08:56 Pulse 66 06/01/21 08:56 Resp 14 06/01/21 08:56 BP 125/84 06/01/21 08:56 Pulse Ox 94 L 06/01/21 08:56 Weight - Most Recent: 228 lb 1.6 oz I&O - Last 24 hours: Intake & Output 05/31/21 06/01/21 06/01/21 22:59 06:59 14:59 Intake Total 640 900 Output Total 200 1500 Balance 440 -600 Lab Results - Last 24 hrs: Laboratory Results - last 24 hr 05/30/21 06/01/21 06/01/21 Range/Units 06:08 04:58 04:58 WBC 10.01 (3.98-10.04) K/mm3 RBC 4.96 (3.98-5.22) M/mm3 Hgb 13.6 (11.2-15.7) gm/dl Hct 40.6 (34.1-44.9) % MCV 81.9 (79.4-94.8) fl MCH 27.4 (25.6-32.2) pg MCHC 33.5 (32.2-35.5) g/dl RDW Std Deviation 38.4 (36.4-46.3) fL Plt Count 407 H D (182-369) K/mm3 MPV 9.4 (9.4-12.3) fl Neut % (Auto) 78.7 H (34.0-71.1) % Lymph % (Auto) 8.6 L (19.3-51.7) % Lamar % (Auto) 10.7 (4.7-12.5) % Eos % (Auto) 0.1 L (0.7-5.8) Baso % (Auto) 0.4 (0.1-1.2) % Neut # (Auto) 7.88 H (1.56-6.13) K/mm3 Lymph # (Auto) 0.86 L (1.18-3.74) K/mm3 Lamar # (Auto) 1.07 H (0.24-0.36) K/mm3 Eos # (Auto) 0.01 L (0.04-0.36) K/mm3 Baso # (Auto) 0.04 (0.01-0.08) K/mm3 Manual Slide Review Normal smear Sodium 138 (136-145) mEq/L Potassium 3.6 (3.5-5.1) mEq/L Chloride 103 (98-107) mEq/L Carbon Dioxide 26 (21-32) mEq/L Anion Gap 12.6 (5-15) BUN 10 (7-18) mg/dL Creatinine 0.6 (0.55-1.02) mg/dL Est Cr Clr Drug Dosing 108.13 mL/min Estimated GFR (MDRD) > 60 (>60) mL/min BUN/Creatinine Ratio 16.7 (14-18) Glucose 142 H (70-99) mg/dL Calcium 8.5 (8.5-10.1) mg/dL Magnesium 2.3 (1.8-2.4) mg/dL Total Bilirubin 0.4 (0.2-1.0) mg/dL AST 23 (15-37) U/L ALT 43 (14-59) U/L Alkaline Phosphatase 49 (46-116) U/L C-Reactive Protein 19.7 H* (<1.0) mg/dL Total Protein 6.5 (6.4-8.2) g/dl Albumin 2.4 L (3.4-5.0) g/dl Globulin 4.1 gm/dL Albumin/Globulin Ratio 0.6 L (1-2) Procalcitonin 0.20 H ng/mL Med Orders - Current: Current Medications Acetaminophen (Acetaminophen 325 Mg Tab) 650 mg PO Q4H PRN PRN Reason: Pain/Fever Last Admin: 05/31/21 20:21 Dose: 650 mg Documented by: Albuterol/Ipratropium (Albuterol/Ipratropium 3.0-0.5 Mg/3 Ml Neb Soln) 3 ml NEB Q4H PRN PRN Reason: Shortness Of Breath/wheezing Azithromycin (Azithromycin 250 Mg Tab) 500 mg PO Q24H MIGUEL Stop: 06/01/21 16:01 Last Admin: 05/31/21 15:38 Dose: 500 mg Documented by: Dexamethasone (Dexamethasone 4 Mg Tab) 6 mg PO Q24H MIGUEL Stop: 06/09/21 09:01 Last Admin: 06/01/21 09:43 Dose: 6 mg Documented by: Docusate Sodium (Docusate Sodium 100 Mg Cap) 100 mg PO BID PRN PRN Reason: Constipation Enoxaparin Sodium (Enoxaparin 40 Mg/0.4 Ml Syringe) 40 mg SUBCUT DAILY [facility] Last Admin: 06/01/21 09:43 Dose: 40 mg Documented by: Guaifenesin/Codeine Phosphate (Codeine/Guaifenesin 10-100 Mg/5 Ml Syrup 5 Ml Cup) 10 ml PO Q4H PRN PRN Reason: Cough Last Admin: 06/01/21 06:13 Dose: 10 ml Documented by: Ceftriaxone Sodium 2 gm/ (Sodium Chloride) 100 mls @ 200 mls/hr IV Q24H MIGUEL Last Admin: 06/01/21 06:13 Dose: 200 mls/hr Documented by: Loperamide HCl (Loperamide 2 Mg Cap) 4 mg PO ASDIRECTED PRN PRN Reason: Diarrhea Last Admin: 05/27/21 22:18 Dose: 4 mg Documented by: Ondansetron HCl (Ondansetron 4 Mg/2 Ml Sdv) 4 mg IVPUSH Q6H PRN PRN Reason: Nausea Ondansetron HCl (Ondansetron 4 Mg Tab.Dis) 4 mg PO Q4H PRN PRN Reason: nausea, able to take PO Oxycodone HCl (Oxycodone 5 Mg Tab) 5 mg PO Q4H PRN PRN Reason: Pain (moderate 4-6) Sodium Chloride (Sodium Chloride 0.9% 10 Ml Syringe) 10 ml FLUSH ASDIRECTED PRN PRN Reason: Keep Vein Open Last Admin: 05/27/21 19:55 Dose: 10 ml Documented by: Temazepam (Temazepam 15 Mg Cap) 15 mg PO BEDTIME PRN PRN Reason: Sleep Last Admin: 05/31/21 20:26 Dose: 15 mg Documented by: Discontinued Medications Al Hydroxide/Mg Hydroxide (Aluminum Hydroxide/Magnesium Hydroxide/Simethicone Susp 30 Ml Cup) 30 ml PO ONETIME ONE Stop: 05/29/21 14:31 Last Admin: 05/29/21 15:19 Dose: 30 ml Documented by: Dexamethasone (Dexamethasone 4 Mg Tab) 6 mg PO ONETIME ONE Stop: 05/27/21 18:09 Last Admin: 05/27/21 19:51 Dose: 6 mg Documented by: Enoxaparin Sodium (Enoxaparin 40 Mg/0.4 Ml Syringe) 40 mg SUBCUT ONETIME ONE Stop: 05/27/21 19:58 Last Admin: 05/27/21 20:11 Dose: 40 mg Documented by: Guaifenesin/Codeine Phosphate (Codeine/Guaifenesin 10-100 Mg/5 Ml Syrup 5 Ml Cup) 5 ml PO Q4H PRN PRN Reason: Cough Last Admin: 05/29/21 15:19 Dose: 5 ml Documented by: Remdesivir 200 mg/ Sodium (Chloride) 250 mls @ 250 mls/hr IV ONETIME ONE Stop: 05/27/21 19:55 Last Admin: 05/27/21 20:12 Dose: 250 mls/hr Documented by: Ceftriaxone Sodium 2 gm/ (Sodium Chloride) 100 mls @ 200 mls/hr IV Q24H [facility] Ceftriaxone Sodium 1 gm/ (Sodium Chloride) 100 mls @ 200 mls/hr IV Q24H [facility] Remdesivir 100 mg/ Sodium (Chloride) 100 mls @ 100 mls/hr IV Q24H [facility] Stop: 05/31/21 20:59 Last Admin: 05/31/21 20:21 Dose: 100 mls/hr Documented by: Morphine Sulfate (Morphine 2 Mg/Ml Syringe) 2 mg IVPUSH Q2H PRN PRN Reason: Pain (severe 7-10) Stop: 05/29/21 06:48 Nicotine (Nicotine 14 Mg/24 Hr Patch) 14 mg TRDERM DAILY [facility] Last Admin: 05/28/21 09:16 Dose: Not Given Documented by: Ondansetron HCl (Ondansetron 4 Mg/2 Ml Sdv) 4 mg IVPUSH ONETIME ONE Stop: 05/27/21 19:59 Last Admin: 05/27/21 20:12 Dose: 4 mg Documented by: Potassium Bicarbonate (Potassium Bicarbonate/Cit Ac 20 Meq Effervescent Tab) 20 meq PO ONETIME ONE Stop: 05/28/21 07:11 Last Admin: 05/28/21 08:48 Dose: 20 meq Documented by: Potassium Chloride (Potassium Chloride 20 Meq Tab.Er) 40 meq PO ONETIME ONE Stop: 05/30/21 08:47 Last Admin: 05/30/21 09:30 Dose: 40 meq Documented by: - Exam Quality Assessment: Denies: Supplemental Oxygen General: Reports: Alert, Oriented HEENT: Reports: Pupils Equal, Mucous Membr. Moist/Oto Neck: Reports: Supple Lungs: Reports: Normal Respiratory Effort, Crackles (Left lower lobe, improved) Cardiovascular: Reports: Regular Rate, Regular Rhythm GI/Abdominal Exam: Normal Bowel Sounds, Soft, Non-Tender, No Distention Skin: Reports: Warm, Dry, Intact Psy/Mental Status: Reports: Alert, Normal Affect, Normal Mood
[2021-06-01] MEDS ORDERED: Aluminum Hydroxide/Magnesium Hydroxide/Simethicone Susp 30 ML Cup PO PRN (12:56)
[2021-06-01] MEDS: Azithromycin 250 MG Tab PO SCH (15:50)
[2021-06-01 16:40] VITALS: BP 133/84; PULSE 73
== END 2021-06-01 16:26 | disposition home or self-care (01) | DRG 137 ==
LOC: JD.ED 15:14 → JD.MS 20:48
PROVIDERS: ADMIT Internal Medicine; ATTEND Internal Medicine
PROC: XW033E5 Introduction of Remdesivir Anti-infective into Peripheral Vein, Percutaneous Approach, New Technology Group 5 (ICD-10-PCS; principal; 2021-05-27)
PROC: 3E0DX3Z Introduction of Anti-inflammatory into Mouth and Pharynx, External Approach (ICD-10-PCS; 2021-05-27)
DX: U07.1 COVID-19 (principal); J96.01 Acute respiratory failure with hypoxia; J12.82 Pneumonia due to coronavirus disease 2019; E66.9 Obesity, unspecified; Z87.442 Personal history of urinary calculi; Z88.1 Allergy status to other antibiotic agents; Z90.710 Acquired absence of both cervix and uterus; Z68.34 Body mass index [BMI] 34.0-34.9, adult
CPT/HCPCS: 36415; 71045; 71045-26; 80053; 83735; 83880; 84100; 84145; 84484; 85025; 85379; 85610; 85730; 86140; 87040; 87804; 93005; 94762; 96372; 96374; 99285-25; A9270-GY; J0696; J1650; J2405; J7050; J8540; U0002